=== PATIENT | male | born 1975 | race Caucasian/White ===

== ENCOUNTER → 2017-12-15 09:20 | Outpatient (CLI) | payer MEDICAID, SELFPAY ==
--- NOTE | 2017-12-15 09:29 | US_ITS ---
STUDY: ABDOMINAL ULTRASOUND - RIGHT UPPER QUADRANT REASON FOR VISIT: Male, 42 years old. Elevated LFTs, hepatitis C, fatty liver TECHNIQUE: Ultrasound evaluation of the right upper quadrant was performed with real-time and static barreto-scale imaging. TECHNICAL QUALITY: Limited. Examination limited by bowel gas. COMPARISON: Previous liver ultrasound of 02/03/2015 FINDINGS: Liver: The liver measures 12.6 cm. There is increased echogenicity consistent with fatty infiltration. The bile ducts are within normal limits. There is hepatic color flow. The direction of portal flow is hepatopetal. There is no demonstrated mass lesion. Gallbladder: Normal distended gallbladder. The gallbladder wall measures 3.4 mm. There is a negative sonographic Zavala's sign. There is a trace of pericholecystic fluid. There are no gallstones. Common Bile Duct (C.B.D.): The common bile duct measures 1.8 mm. Pancreas: The pancreas is poorly visualized secondary to obscuration by bowel gas. Right Kidney: Normal size of the right kidney. The right kidney measures 9.5 x 4.5 x 5.0 cm. Normal renal cortex. The right cortex measures 1.7 cm. There is no demonstrated renal mass or cyst. There is no right hydronephrosis. US/Liver IMPRESSION: The liver demonstrates diffusely increased echogenicity suggestive of steatosis. The pancreas was poorly visualized due to obscuration by excessive bowel gas. There is a trace of pericholecystic fluid. There is mild gallbladder wall thickening, measuring up to 3.4 mm. There is no evidence of cholelithiasis. Electronically Signed: Phillip Delarosa MD at 17:13 EST , Service support ,
--- NOTE | 2017-12-15 09:29 | RAD_ITS ---
STUDY: X-RAY - ABDOMEN/PELVIS REASON FOR EXAM: Male, 42 years old. Abdominal pain TECHNIQUE: Two AP supine views of the abdomen and pelvis. COMPARISON: Prior study of 12/30/2016 FINDINGS: The lung bases are not in the field of view of the study. There is a moderate amount of colonic stool. There is no demonstrated free abdominal air. There are tiny radiopacities in the 2 to 3 mm range overlying the renal silhouettes which may represent nephrolithiasis. These are stable in the interval. There are bilateral pelvic phleboliths. There are degenerative changes of the lower lumbar spine. RAD/Abdomen Single View IMPRESSION: Tiny radiopacities in the 2 to 3 mm range overlying the renal silhouettes which may represent nephrolithiasis. These are stable in the interval. Moderate amount of colonic stool which may represent constipation. There is no evidence of ileus or obstruction. Electronically Signed: Phillip Delarosa MD at 16:52 EST , Service support ,
== END ==
PROVIDERS: Family Provider Family Medicine; PCP Family Medicine; Visit Provider Family Medicine
DX: N20.0 Calculus of kidney (principal); B19.20 Unspecified viral hepatitis C without hepatic coma; R79.89 Other specified abnormal findings of blood chemistry
CPT/HCPCS: 74018; 76705

== ENCOUNTER → 2018-01-27 08:54 | Outpatient (CLI) | payer MEDICAID, SELFPAY ==
[2018-01-27 09:43] VITALS: PULSE 63; PULSE 65; PULSE 78; PULSE 80; PULSE 81; PULSE 82; PULSE 85; PULSE 86; O2SAT 86; O2SAT 92; O2SAT 95; O2SAT 96; O2SAT 97; O2SAT 98
--- NOTE | 2018-01-27 09:52 | CPS ---
Patient began testing on room air. Spo2 dropped at 1 min to 86% RA, rested placed on 2lpm and testing continued. Patient had a rest each minute due to back pain. SPO2 maintained above 90% on 2lpm for remainder of testing. Prescription signed by LEEANNA Calix and sent to [facility] [place].
[2018-01-27 10:52] LABS: ALB/GLOB Ratio 0.9 RATIO (0.9-2.4); AST(SGOT) 131 U/L (15-37); Alanine Aminotransfer ALT/SGPT 96 U/L (16-61); Albumin, Serum 3.8 g/dL (3.2-5.0); Alkaline Phosphatase 145 U/L (45-117); Anion Gap 6 (5-15); BUN 25 mg/dL (7-18); BUN/Creat Ratio 17.2 RATIO (10-20); Chloride 111 mmol/L (98-107); Creatinine, Serum 1.45 mg/dL (0.70-1.30); EST Glomerular Filtration Rate 57 mL/min (>60); Est Glom Filt Rate - Afr Amer 69 mL/min (>60); Estimated Creatinine Clearance 72.38 ml/min; Globulin 4.2 g/dL (2.2-4.2); Glucose 94 mg/dL (74-106); Potassium 4.1 mmol/L (3.5-5.1); Sodium Level 144 mmol/L (136-145)
--- NOTE | 2018-01-27 13:54 | PCM.PSN.6M ---
PSN 6 Minute Walk Test - 6 Minute Walk Test 6 Minute Walk Test: 6 Minute Walk Test PSN:6-Minute Walk Test Start: 01/27/18 09:42 Freq: Status: Active Protocol: [id number].6MINW Document 01/27/18 09:43 [facility] (Rec: 01/27/18 10:00 [facility] [id number]) 6 Minute Walk Test Date Performed 01/27/18 Time Performed 09:00 Height 6 ft 1 in Weight: 170 lb Weight in Pounds 170.[address]: Edward Ahuja Assistive device used: None Pre-test Oxygen Delivery Method Room Air Pulse Ox (%) 96 Pulse Rate (60-100 beats/min) 63 Dyspnea Emanuel Scale (0-10) 1 1st minute Oxygen Delivery Method Room Air Pulse Ox (%) 86 Pulse Rate (60-100 beats/min) 85 Dyspnea Emanuel Scale (0-10) 3 Number of Rests Taken 1 Reported Symptoms Cyanotic Increased Work of Breathing 2nd minute Oxygen Flow Rate (L/min) (L/min) 2 Oxygen Delivery Method Nasal Cannula Pulse Ox (%) 92 Pulse Rate (60-100 beats/min) 86 Dyspnea Emanuel Scale (0-10) 2 Number of Rests Taken 1 3rd minute Oxygen Flow Rate (L/min) (L/min) 2 Oxygen Delivery Method Nasal Cannula Pulse Ox (%) 95 Pulse Rate (60-100 beats/min) 82 Dyspnea Emanuel Scale (0-10) 2 Number of Rests Taken 1 4th minute Oxygen Flow Rate (L/min) (L/min) 2 Oxygen Delivery Method Nasal Cannula Pulse Ox (%) 97 Pulse Rate (60-100 beats/min) 81 Dyspnea Emanuel Scale (0-10) 2 Number of Rests Taken 1 5th minute Oxygen Flow Rate (L/min) (L/min) 2 Oxygen Delivery Method Nasal Cannula Pulse Ox (%) 95 Pulse Rate (60-100 beats/min) 78 Dyspnea Emanuel Scale (0-10) 2 Number of Rests Taken 1 6th minute Oxygen Flow Rate (L/min) (L/min) 2 Oxygen Delivery Method Nasal Cannula Pulse Ox (%) 98 Pulse Rate (60-100 beats/min) 80 Dyspnea Emanuel Scale (0-10) 2 Post-test Oxygen Flow Rate (L/min) (L/min) 2 Oxygen Delivery Method Nasal Cannula Pulse Ox (%) 98 Pulse Rate (60-100 beats/min) 65 Dyspnea Emanuel Scale (0-10) 0 Full Laps Walked 10 Partial Lap, Number of Tiles Walked 14 Total Distance Walked (ft) 604 01/27/18 09:52 Cardiopulmonary Services by Jeanine Farmer Patient began testing on room air. Spo2 dropped at 1 min to 86% RA, rested placed on 2lpm and testing continued. Patient had a rest each minute due to back pain. SPO2 maintained above 90% on 2lpm for remainder of testing. Prescription signed by LEEANNA Calix and sent to [facility] [place]. Initialized on 01/27/18 09:52 - END OF NOTE - Interpretation Interpretation: The patient ambulated 604 feet over the course of 6 minutes beginning on room air without assistive devices or breaks. Pretesting oxygen saturation was noted to be 96% on room air. With ambulation, the raymond oxygen saturation was 86% at minute 2 of testing. 2 L/min of supplemental oxygen was applied and the patient was able to complete the remainder of the test, while maintaining oxygen saturations at or above 88%. There was evidence of both impaired walk distance and significant exertional oxygen desaturation. - Recommendations Recommendations: 2 L/min of supplemental oxygen should be utilized with exertion.
== END ==
PROVIDERS: Family Provider Family Medicine; PCP Family Medicine; Visit Provider Family Medicine
DX: J18.9 Pneumonia, unspecified organism (principal); G93.40 Encephalopathy, unspecified; B19.20 Unspecified viral hepatitis C without hepatic coma; R79.89 Other specified abnormal findings of blood chemistry
CPT/HCPCS: 36415; 80053; 82140; 94618

== ENCOUNTER → 2018-01-31 10:58 | Outpatient (CLI) | payer MEDICAID, SELFPAY ==
--- NOTE | 2018-01-31 15:23 | PFTCOMP ---
COMPLETE PULMONARY FUNCTION TEST INTERPRETATION Brief HPI: Patient is a 43 year old male, currently under the care of myself, who presents to [facility] for complete pulmonary function tests secondary to diagnosis of ZAIRE. Respiratory therapist reports good effort and reproducible results. Interpretation: Forced expiration spirometry shows no large airways obstructive ventilatory defect with an FEV1 of 88% predicted. There is no significant bronchodilator response by ATS criteria. Spirograms are of good quality and plateau normally. The respiratory flow volume loop shows a normal pattern. Lung volumes by body plethysmography show a normal total lung capacity at 6.85 L, 90% predicted. All other lung volumes are within normal limits. Diffusion capacity by carbon monoxide is normal at 73% predicted. The airway resistance is normal. Compared to previous pulmonary function tests from 01/04/2017, there has been a significant improvement in DLCO. Impression: These pulmonary function tests are grossly within normal limits and show significant improvement in DLCO compared to previous.
== END ==
PROVIDERS: Family Provider Family Medicine; PCP Family Medicine; Visit Provider Internal Medicine Critical Care Medicine
DX: G47.33 Obstructive sleep apnea (adult) (pediatric) (principal)
CPT/HCPCS: 94060; 94726; 94729

== ENCOUNTER → 2018-02-27 15:10 | Outpatient (CLI) | payer MEDICAID, SELFPAY ==
[2018-02-27 17:05] LABS: Absolute Lymphocyte Count 3.45 X10^3/ul (0.83-4.51); Basophil# 0.07 X10^3/uL; Basophil% 0.5 % (0-1); Eosinophil# 0.77 X10^3/uL; Eosinophils% 5.3 % (0-5); Hematocrit 39.6 % (40-54); Hemoglobin 12.9 g/dl (13.0-16.5); Lymphocyte # 3.45 X10^3/ul (4.0); Lymphocyte % 23.9 % (19-41); Mean Corp Hgb Conc 32.6 g/gl (32-36); Mean Corpuscular Hgb 30.2 pg (27.0-32.0); Mean Corpuscular Volume 92.7 fL (80-94); Mean Platelet Vol. 10.8 fl (6.2-12.0); Monocyte# 1.06 X10^3/uL; Monocyte% 7.3 % (0-10); Neutrophil # 9.02 X10^3/uL (2.7-7.7); Neutrophil % 62.5 % (47-70); POSITIVE COUNT NO; POSITIVE DIFFERENTIAL NO; POSITIVE MORPHOLOGY NO; Platelet Count 370 K/mm3 (150-450); RBC Distribution Width CV 13.6 % (11.6-14.6); RBC Distribution Width SD 45.6 fl (35.1-43.9); Red Blood Count 4.27 M/mm3 (4.6-6.2); White Blood Count 14.4 K/mm3 (4.4-11.0)
[2018-02-27 17:16] LABS: AST(SGOT) 115 U/L (15-37); Alanine Aminotransfer ALT/SGPT 89 U/L (16-61); Albumin, Serum 3.9 g/dL (3.2-5.0); Alkaline Phosphatase 175 U/L (45-117); Anion Gap 6 (5-15); BUN 21 mg/dL (7-18); BUN/Creat Ratio 15.7 RATIO (10-20); Bilirubin, Direct 0.17 mg/dL (0.00-0.30); Calcium,Total 9.2 mg/dL (8.5-10.1); Chloride 105 mmol/L (98-107); Creatinine, Serum 1.34 mg/dL (0.70-1.30); EST Glomerular Filtration Rate 62 mL/min (>60); Est Glom Filt Rate - Afr Amer 75 mL/min (>60); Globulin 4.5 g/dL (2.2-4.2); Glucose 84 mg/dL (74-106); Potassium 4.6 mmol/L (3.5-5.1); Protein, Total 8.4 g/dL (6.4-8.2); Sodium Level 138 mmol/L (136-145)
[2018-02-27 17:29] LABS: Hemoglobin A1c 5.1 % (4.2-6.3)
== END ==
PROVIDERS: Family Provider Family Medicine; PCP Family Medicine; Visit Provider Family Medicine
DX: G93.40 Encephalopathy, unspecified (principal); F10.11 Alcohol abuse, in remission; R26.89 Other abnormalities of gait and mobility; R73.01 Impaired fasting glucose
CPT/HCPCS: 36415; 80048; 80076; 82140; 83036; 85025

== ENCOUNTER → 2018-03-29 11:20 | Outpatient (CLI) | payer MEDICAID, SELFPAY ==
[2018-03-29 12:43] LABS: ALB/GLOB Ratio 0.9 RATIO (0.9-2.4); AST(SGOT) 104 U/L (15-37); Alanine Aminotransfer ALT/SGPT 85 U/L (16-61); Alkaline Phosphatase 134 U/L (45-117); Anion Gap 12 (5-15); BUN 32 mg/dL (7-18); BUN/Creat Ratio 19.2 RATIO (10-20); Calcium,Total 9.3 mg/dL (8.5-10.1); Chloride 106 mmol/L (98-107); Creatinine, Serum 1.67 mg/dL (0.70-1.30); EST Glomerular Filtration Rate 48 mL/min (>60); Est Glom Filt Rate - Afr Amer 58 mL/min (>60); Globulin 4.7 g/dL (2.2-4.2); Glucose 99 mg/dL (74-106); Potassium 3.9 mmol/L (3.5-5.1); Prealbumin 26.1 mg/dL (20.0-40.0); Protein, Total 8.7 g/dL (6.4-8.2); Sodium Level 140 mmol/L (136-145)
== END ==
PROVIDERS: Family Provider Family Medicine; PCP Family Medicine; Visit Provider Family Medicine
DX: K72.90 Hepatic failure, unspecified without coma (principal); R25.1 Tremor, unspecified; R27.8 Other lack of coordination; R29.6 Repeated falls
CPT/HCPCS: 36415; 80053; 82140; 84134

== ENCOUNTER 2018-04-05 09:20 | Inpatient (IN) | payer MEDICAID, SELFPAY ==
[2018-04-05] VITALS (7 sets, daily range): BP systolic 92–131; BP diastolic 44–96; PULSE 60–72; RESP 16–18; TEMP 35.9–36.7; O2SAT 95–100; BMI 20.2; BMI 20.3
[2018-04-05 10:37] LABS: Absolute Lymphocyte Count 2.46 X10^3/ul (0.83-4.51); Absolute Neutrophil Count 4.5 X10^3/uL (2.0-7.7); Basophil# 0.03 X10^3/uL; Basophil% 0.4 % (0-1); Eosinophil# 0.46 X10^3/uL; Eosinophils% 5.6 % (0-5); Hematocrit 34.1 % (40-54); Hemoglobin 11.3 g/dl (13.0-16.5); Lymphocyte # 2.46 X10^3/ul (4.0); Lymphocyte % 29.8 % (19-41); Mean Corp Hgb Conc 33.1 g/gl (32-36); Mean Corpuscular Hgb 28.8 pg (27.0-32.0); Mean Platelet Vol. 9.2 fl (6.2-12.0); Monocyte# 0.77 X10^3/uL; Monocyte% 9.3 % (0-10); Neutrophil # 4.53 X10^3/uL (2.7-7.7); Neutrophil % 54.8 % (47-70); Platelet Count 301 K/mm3 (150-450); RBC Distribution Width CV 12.3 % (11.6-14.6); RBC Distribution Width SD 39.1 fl (35.1-43.9); Red Blood Count 3.92 M/mm3 (4.6-6.2); White Blood Count 8.3 K/mm3 (4.4-11.0)
[2018-04-05 10:38] LABS: POSITIVE COUNT NO; POSITIVE DIFFERENTIAL NO; POSITIVE MORPHOLOGY NO
[2018-04-05 10:52] LABS: ALB/GLOB Ratio 0.9 RATIO (0.9-2.4); AST(SGOT) 86 U/L (15-37); Alanine Aminotransfer ALT/SGPT 70 U/L (16-61); Albumin, Serum 3.7 g/dL (3.2-5.0); Alkaline Phosphatase 116 U/L (45-117); Anion Gap 12 (5-15); BUN 40 mg/dL (7-18); BUN/Creat Ratio 14.7 RATIO (10-20); Calcium,Total 9.3 mg/dL (8.5-10.1); Chloride 104 mmol/L (98-107); Creatinine, Serum 2.72 mg/dL (0.70-1.30); EST Glomerular Filtration Rate 27 mL/min (>60); Est Glom Filt Rate - Afr Amer 33 mL/min (>60); Estimated Creatinine Clearance 34.96 ml/min; Globulin 4.1 g/dL (2.2-4.2); Glucose 105 mg/dL (74-106); Lipase 233 U/L (73-393); Potassium 3.4 mmol/L (3.5-5.1); Protein, Total 7.8 g/dL (6.4-8.2); Sodium Level 141 mmol/L (136-145)
[2018-04-05 10:58] LABS: Alcohol, Blood (Medical)-Serum < 3.0 mg/dL
[2018-04-05 11:13] LABS: Bacteria 0 SEEN /hpf (None Seen); Red Blood Cells-Urine 0 SEEN /hpf (0-5)
[2018-04-05 11:15] LABS: Color, Urine Yellow (Yellow); Glucose, Dipstick Normal (Normal); Ketone-Dipstick Negative (Negative); Leukocyte Esterase-Dipstick 100 /ul (Negative); Nitrite-Dipstick Negative (Negative); Occult Blood-Urine Negative /ul (Negative); Protein-Dipstick 30 mg/dl (Negative); Urine Clarity Sl. Cloudy (Clear); Urine Urobilinogen 1 mg/dl (Normal)
[2018-04-05 11:16] LABS: Urine Bilirubin Dipstick 1 mg/dL (Negative)
[2018-04-05 11:22] LABS: White Blood Cells 5-10 SEEN /hpf (0-5)
[2018-04-05 11:24] LABS: Fine Granular Cast- Urine 0-5 SEEN /lpf (0-5); Hyaline Cast 5-10 SEEN /lpf (0-5); Mucous, Urine RARE /hpf (<or=2+); Squamous Epithelial Cells - UA 0-5 SEEN /hpf (0-5)
[2018-04-05 11:28] LABS: Amphetamine Urine VISTA NEGATIVE (<1000 ng/mL); Barbiturate Urine VISTA POSITIVE (< 200 ng/mL); Benzodiazepine Urine VISTA NEGATIVE (< 200 ng/mL); Cocaine Urine VISTA NEGATIVE (< 300 ng/mL); Ecstacy Urine VISTA POSITIVE (< 500 ng/mL); Methadone Urine VISTA NEGATIVE (< 300 ng/mL); PCP Urine VISTA NEGATIVE (< 25 ng/mL); THC Urine VISTA POSITIVE (< 50 ng/mL); Vista UDS pH Range 6
[2018-04-05] MEDS: 0.9% Normal Saline 1,000 ML 999 ML IV (11:30)
--- NOTE | 2018-04-05 11:40 | ED.RN ---
SPOKE TO [facility] WITH CRISIS; THEY WILL BE IN TO EVAL PT SOMETIME AFTER ONE
--- NOTE | 2018-04-05 11:45 | CT_ITS ---
STUDY: CT BRAIN WITHOUT CONTRAST REASON FOR EXAM: Male, 43 years old. Altered mental status and hallucinations. Hypotensive. Seizure disorder. RADIATION DOSAGE (If Supplied By Facility): CTDIvol = ( 44.99 ) mGy, DLP = ( 829.85 ) mGycm TECHNIQUE: Transaxial CT imaging of the brain was performed without administration of intravenous contrast material. Individualized dose optimization techniques were used for this CT. COMPARISON: Comparison is made with prior study dated May 19, 2016. FINDINGS: Normal soft tissue structures. Normal calvarium. Normal size ventricles and extra-axial spaces for the patient's age. Normal white matter tracts of the cerebral hemispheres. Normal basal ganglia and thalami. Normal brainstem. Normal cerebellum. There is no intracranial hemorrhage. There are no findings of an acute ischemic infarction. Partial opacification of the maxillary sinuses worse on the left side. CT/Brain/Head without Contrast IMPRESSION: No acute abnormality is seen. Electronically Signed: Malik Ignacio MD at 14:25 EDT Tel [phone], Service support ,
--- NOTE | 2018-04-05 12:00 | RAD_ITS ---
STUDY: X-RAY CHEST REASON FOR EXAM: Male, 43 years old. Hallucinations. TECHNIQUE: PA and lateral views of the chest. COMPARISON: Comparison is made with prior study dated February 27, 2015. FINDINGS: The lungs are clear and expanded. There is no demonstrated pleural abnormality. Normal size heart. Normal mediastinum and jerad. Normal visualized pulmonary arteries. Normal visualized aortic arch and descending thoracic aorta. Normal visualized thoracic spine. Normal visualized ribs, clavicles, and shoulders. There is no demonstrated abnormality of the visualized soft tissue structures of the upper abdomen. RAD/Chest PA and Lateral IMPRESSION: Normal x-ray examination of the chest. Electronically Signed: Malik Ignacio MD at 14:19 EDT Tel [phone], Service support ,
--- NOTE | 2018-04-05 16:12 | ED.VISSUMM ---
- ER Visit Summary Date of Service: 04/05/18 Chief Complaint: Altered mental status History of Present Illness: The patient is a 43 M who presents with hallucinations at night and apparent manic behavior per his . He sees the counseling center as well as [facility]. He has been without alcohol for 2 months. The patient stopped Campral last week. States that he has been seeing things at night believing that there are people around him that are not there. Has a history of hepatitis C as well as alcoholism as well as bipolar/schizoaffective disorder. He has lost about 15 pounds since he stopped drinking. Physical Examination: Afebrile vital signs are stable Gen: Well-nourished well-developed Head: Normocephalic atraumatic Eyes: Perrl EOMI ENT: TMs clear no rhinorrhea moist mucous membranes Neck: Supple no lymphadenopathy no JVD nontender CVS: Regular rate rhythm no murmurs normal S1-S2 Respiratory: No distress clear to auscultation bilaterally chest nontender Abdomen: Soft nontender nondistended normal bowel sounds no masses Back: Nontender Extremity: Nontender no edema Skin: Normal color no rash Neuro: alert orientated ?3 CN II-XII intact normal strength sensation patient has extrapyramidal side effects Psych: Patient appears manic. Test Results: Creatinine 2.72 with a BUN of 40. His creatinine is substantially changed from 6 days ago. His tox screen is positive for methamphetamines barbiturates and THC. Ammonia level 25. CT brain negative chest x-ray negative Emergency Department Course and Treatment: She received IV fluids. I cannot clear him medically to go to psych and so he be admitted medically. Impression: 1. Acute kidney injury 2. Hallucinations 3. Encephalopathy 4. Acute luis This note was generated with [employer] dictation software. It may contain incorrect words, spelling, and punctuation that were not noted in review of the chart prior to signing ED Disposition - Plan for ED Patient: Chief Complaint: Mental Health
--- NOTE | 2018-04-05 20:08 | HP.PCM_ITS ---
Problem List (1) EDITH (acute kidney injury) Status: Acute (2) Bipolar disorder Status: Chronic Qualifiers: Active/Remission status: currently active Current bipolar episode type: manic Current episode severity: severe Psychotic features: with psychotic features Qualified Code(s): F31.2 - Bipolar disorder, current episode manic severe with psychotic features (3) Chronic alcoholism Status: Chronic Qualifiers: Substance use status: in remission History of Present Illness Date of Admission: 04/05/18 Chief Complaint: Manic episode. The patient is a 43 year old M []Patient gabriela 43 yo WM with history of alcoholism and substance abuse, presents with symptoms of manic episodes for about one week. He has not been sleeping, and has symptoms of visual hallucinations that he sees people that not present at the time. He has been following outpatient counseling. He was found to have creatinine of 2.72 on BMP. His baseline has been ranging from 1.3 to 1.7 in past 2 years. He had quit drinking 2 month ago, and since then, he had lost about 15 lbs. He still smokes marijuana, but denied of any other illicit drug use at this time. He has diagnosis of bipolar, but also he was told that he has schizoaffective disorder. He had occasional auditory hallucination in the past, but did not have visual hallucination in the past. CT of head was negative. He has history of Hep C, but liver enzymes were just marginally elevated, and ammonia level was 25. Past Medical History Past Medical History (Chronic Problems): Chronic Problems (Last Reviewed 03/09/18 @ 09:11 by Terri Petty) Bipolar disorder (Chronic) Tobacco abuse (Chronic) Hearing loss (Chronic) Weakness (Chronic) Abnormal chest xray (Chronic) Hypertriglyceridemia (Chronic) Hepatitis (Chronic) Bilateral knee pain (Chronic) Osteoarthritis (Chronic) Palpitations (Chronic) Dizziness (Chronic) Unsteady gait (Chronic) Tremor (Chronic) Stage 2 moderate COPD by GOLD classification (Chronic) Kidney stone (Chronic) Chronic alcoholism (Chronic) Medical History: Medical History (Last Reviewed 03/09/18 @ 09:11 by eTrri Ptety) Bipolar disorder (Chronic) F31.9 Tobacco abuse (Chronic) Z72.0 Hearing loss (Chronic) H91.90 Weakness (Chronic) R53.1 Abnormal chest xray (Chronic) R93.8 Abnormal liver function test (Acute) R94.5 Hypertriglyceridemia (Chronic) E78.1 Hepatitis (Chronic) K75.9 Bilateral knee pain (Chronic) M25.561, M25.562 Osteoarthritis (Chronic) M19.90 Palpitations (Chronic) R00.2 Dizziness (Chronic) R42 Unsteady gait (Chronic) R26.81 Tremor (Chronic) R25.1 Stage 2 moderate COPD by GOLD classification (Chronic) J44.9 Left upper lobe pneumonia (Acute) J18.9 Kidney stone (Chronic) Chronic alcoholism (Chronic) F10.20 Alcohol withdrawal with delirium (Acute) F10.231 GERD (gastroesophageal reflux disease) (Acute) K21.9 Hallucination, visual (Acute) R44.1 Allergies amantadine [From Symmetrel] Allergy (Verified 04/15/17 11:40) Other GOES CRAZY ranitidine [From Zantac] Allergy (Verified 04/05/18 09:22) Other Home Medications: Ambulatory Orders Medication Instructions Recorded Cyclobenzaprine [Flexeril] 10 mg PO TID PRN PRN 04/05/18 Diclofenac [Voltaren] 50 mg PO BID 04/05/18 Fluoxetine [Prozac] 80 mg PO DAILY 04/05/18 Gemfibrozil [Lopid] 600 mg PO BID 04/05/18 Hydroxyzine Pamoate [Vistaril] 50 mg PO BID 04/05/18 Lamotrigine 200 mg PO DAILY 04/05/18 Lamotrigine [Lamictal Xr] 50 mg PO QHS 04/05/18 Loratadine 10 mg PO DAILY 04/05/18 Naltrexone HCl 50 mg PO DAILY 04/05/18 Omeprazole 20 mg PO DAILY 04/05/18 Propranolol HCl 40 mg PO BID 04/05/18 Ziprasidone HCl [Geodon] 40 mg PO QHS 04/05/18 traZODone [Desyrel] 200 mg PO DAILY 04/05/18 Surgical History: Surgical History (Last Reviewed 03/09/18 @ 09:11 by Terri Petty) History of neck surgery (Resolved) Z98.890 History of extraction of renal calculus (Resolved) Z98.890, Z87.448 History of rhinoplasty (Resolved) Z98.890 Surgical History: - - unknown Psychiatric History: - - unknown Smoking Status: Former smoker Tobacco Use: Cigarettes - *Family History Maternal Family History: Family History (Last Reviewed 03/09/18 @ 09:11 by Terri Petty) Mother Diabetes Depression History Items: - - Mother has history of bipolar disorder and she is on antipsychotic medications. Review of Systems Comment: ROS: In general: Patient has been in good health, denied of any constitutional symptoms, such as weight loss, or gain, fever, chills, or night sweats. Patient denied of any profound fatigue. HEENT: Unremarkable. Patient denied of any dizziness, chronic headache, blurred vision, double vision, dry mouth, or nasal congestion. CV/respiratory: There is no exertional shortness of breath, chest pain, palpitation, wheezing, cough, claudication, cold feet, or peripheral edema. GI: Patient denied any abdominal pain, nausea, vomiting, diarrhea, constipation, melena, or hematochezia. : Patient denied any significant urinary symptoms. Neurology: Unremarkable. There is no history of seizure as an adult. Psychological: See HPI. Endocrine: Unremarkable. Musculoskeletal: Unremarkable. VTE Information - Inpt Only VTE Present on Admission: No VTE Mechan Device Prophylaxis: Knee High EVELINA Hose VTE Pharm Prophylaxis ordered?: Yes Patient Problems: Active and Suspected Problems (Last Reviewed 03/09/18 @ 09:11 by Terri Petty ) EDITH (acute kidney injury) (Acute) Objective: In general, patient is a cachectic appearing male. He has pressured speech, but coherent. HEENT: Head is atraumatic, and normocephalic. Pupils are equal, round, and reactive to light and accommodations. Neck is supple. There is no lymphadenopathy, or thyromegaly. Oral mucosa is pink, and moist. There are no lesions. Heart: Auscultation is normal with regular rhythm and rate. There is no extra heart sounds, or murmurs. S1 and S2 are present. Point of maximal impulse is not displaced. Lungs: Lungs are clear to auscultation bilaterally. There is no wheezing, or crackles. Abdomen: Abdominal wall is non-tender, and non-distended. There is no palpable mass or organomegaly. Normoactive bowel sounds are present. Extremities: There is no cyanosis or clubbing. Peripheral pulses are palpable. There is no edema. Skin: There are no any skin discoloration or lesions. Neurological: CN II - XII are intact. Sensory and motor functions are grossly normal with no obvious deficit. Cerebellar functions are within normal range. Gait was not tested. He is affect is pressured, and has odd affect response. Oriented x 3. - Physical Exam Vital Signs Temp Pulse Resp BP Pulse Ox 98.1 F 64 18 103/44 L 95 04/05/18 19:50 04/05/18 19:50 04/05/18 19:50 04/05/18 19:50 04/05/18 19:50 Oxygen Flow Rate (L/min) 2 Oxygen Delivery Method Nasal Cannula Assessment/Plan All Active Problems (Last Reviewed 03/09/18 @ 09:11 by Terri Petty) EDITH (acute kidney injury) (Acute) History of neck surgery (Resolved) History of extraction of renal calculus (Resolved) History of rhinoplasty (Resolved) Abnormal liver function test (Acute) Left upper lobe pneumonia (Acute) Alcohol withdrawal with delirium (Acute) GERD (gastroesophageal reflux disease) (Acute) Hallucination, visual (Acute) Patient gabriela 43 yo WM with history of alcoholism and substance abuse, presents with symptoms of manic episodes for about one week. He has not been sleeping, and has symptoms of visual hallucinations that he sees people that not present at the time. He has been following outpatient counseling. He was found to have creatinine of 2.72 on BMP. His baseline has been ranging from 1.3 to 1.7 in past 2 years. He had quit drinking 2 month ago, and since then, he had lost about 15 lbs. He still smokes marijuana, but denied of any other illicit drug use at this time. He has diagnosis of bipolar, but also he was told that he has schizoaffective disorder. He had occasional auditory hallucination in the past, but did not have visual hallucination in the past. CT of head was negative. He has history of Hep C, but liver enzymes were just marginally elevated, and ammonia level was 25. #1 EDITH with CKD III. Creatine is 2.72, baseline is 1.3 to 1.7. Etiology is not clear, possibly due to dehydration / poor oral intake. IVF 0.45 NS at 150 ml/hr. Discontinue diclofenac for now. Monitor BMP. #2 Mood disorder. Likely with bipolar with manic episodes, along with psychosis feature. He will benefit from inpatient psychiatry treatment when EDITH improves. Continue current medications. #3 History of alcohol and polysubstance abuse. Continue medications. #4 HIstory of hepatitis C. Liver enzymes are just marginally elevated. No signs of acute hepatitis otherwise. VTE prophylaxis: Low risk. GI prophylaxis: PPI po. He is full code. Disposition: to be determined. Code Visit Inpatient E&M: [id number] Init Hosp L3
[2018-04-05] MEDS: Gemfibrozil 600 MG Tablet PO (21:40)
[2018-04-05] MEDS: lamoTRIgine 25 MG Tablet 50 MG PO (21:41)
[2018-04-05] MEDS: lamoTRIgine 25 MG Tablet PO (21:41)
[2018-04-05] MEDS: 0.45% Normal Saline 1,000 ML 150 ML IV (21:43)
[2018-04-05] MEDS: traZODone 100 MG Tablet 200 MG PO (21:48)
[2018-04-06] VITALS: PULSE 78
[2018-04-06 01:52] VITALS: BP 98/63; PULSE 65; RESP 16; TEMP 37.2; O2SAT 97
--- NOTE | 2018-04-06 02:31 | NURSING ---
pt taking off tele leads repeatedly all through night will not leave on. nursing staff continually replace but pt unable to follow instructions to leave on
[2018-04-06] MEDS: hydrOXYzine PAM 25 MG Capsule 50 MG PO (03:48)
[2018-04-06] MEDS: 0.45% Normal Saline 1,000 ML 150 ML IV ×3 (03:48→17:07)
[2018-04-06 06:42] LABS: Hematocrit 30.6 % (40-54); Hemoglobin 10.3 g/dl (13.0-16.5); Mean Corp Hgb Conc 33.7 g/gl (32-36); Mean Corpuscular Hgb 29.4 pg (27.0-32.0); Mean Corpuscular Volume 87.4 fL (80-94); Mean Platelet Vol. 10.1 fl (6.2-12.0); Platelet Count 339 K/mm3 (150-450); RBC Distribution Width CV 11.5 % (11.6-14.6); RBC Distribution Width SD 35.9 fl (35.1-43.9); Scan Indicated on CBC? Y/N NO
[2018-04-06 06:54] LABS: Anion Gap 9 (5-15); BUN 23 mg/dL (7-18); BUN/Creat Ratio 14.7 RATIO (10-20); Calcium,Total 8.6 mg/dL (8.5-10.1); Chloride 111 mmol/L (98-107); Creatinine, Serum 1.56 mg/dL (0.70-1.30); EST Glomerular Filtration Rate 52 mL/min (>60); Est Glom Filt Rate - Afr Amer 63 mL/min (>60); Estimated Creatinine Clearance 60.55 ml/min; Glucose 80 mg/dL (74-106); Potassium 3.8 mmol/L (3.5-5.1); Sodium Level 143 mmol/L (136-145)
[2018-04-06 07:50] VITALS: BP 108/60; PULSE 68; RESP 18; TEMP 36.2; O2SAT 96
[2018-04-06] MEDS: Gemfibrozil 600 MG Tablet PO ×2 (08:23→21:57)
[2018-04-06] MEDS: lamoTRIgine 25 MG Tablet PO ×2 (08:23→21:56)
[2018-04-06] MEDS: NALTREXONE HCL 50 MG TABLET PO (08:23)
[2018-04-06] MEDS: Propranolol 40 MG Tablet PO ×2 (08:23→21:56)
[2018-04-06] MEDS: FLUoxetine 20 MG Capsule 80 MG PO (08:23)
[2018-04-06] MEDS: Pantoprazole Sodium 20 MG Tablet PO (08:23)
[2018-04-06] MEDS: Loratadine 10 MG Tablet PO (08:28)
[2018-04-06] MEDS: lamoTRIgine 100 MG Tablet 200 MG PO (08:28)
--- NOTE | 2018-04-06 10:28 | CASEMGMT ---
Social Work Met with pt in room and introduced self and role of SW. Pt alert and answering questions but reliability of answers is questionable. Pt does confirm that he sees a psychiatrist at the counseling center but has not been there for a long time. Pt also states he goes to [facility] but has not been involved in the last week. Pt lives at home with his spouse and children in a two story home and is on disability and able to help him as needed. Pt uses [facility]. Phone call to [facility] inquiring if referral has been made and at this time Crisis has not received a referral. SW notified physician and will continue to follow and provide support and assist as needed. SKYLER Rodriguez
--- NOTE | 2018-04-06 11:34 | PCM.PROGNOTE ---
Patient Problems: Active and Suspected Problems (Last Reviewed 03/09/18 @ 09:11 by Terri Petty) EDITH (acute kidney injury) (Acute) Subjective: Patient is a 43-year-old male with a past medical history of bipolar disorder, schizoaffective disorder, tobacco dependence, hypertriglyceridemia, history of hepatitis C, COPD, nephrolithiasis, substance abuse and alcoholism who presented to the emergency room at [facility] on 04/05/2018 complaining of hallucinations and manic behavior for 1 week per his . He follows with [facility] and the counseling center. He quit drinking approximately 2 months ago. He was on Campral which he quit 2 weeks prior to presenting to the ER. Vital signs at presentation to the emergency room were temperature 96.7, pulse rate 68, blood pressure 92/59, respiratory rate 18 and he was 100% saturated on room air. White blood cell count was 8.3 with an unremarkable differential. Hemoglobin was 11.3 and platelets were within normal limits. Potassium is mildly decreased at 3.4. BUN was 40 and the creatinine was 2.72, up from 1.67 on 03/29/2018. AST and ALT are mildly elevated at [address] showed no acute abnormality. Chest x-ray was normal. Urine tox screen is positive for barbiturates, methamphetamine and cannabis. Ethyl alcohol was less than 3.0. He takes Naltrexone 50 mg daily. BUN is 23 today and the creatinine is 1.56 following hydration. He is afebrile and vital signs are stable. His states he has not slept in 3 nights. He has not been eating or drinking. she has never seen him manic. He denies any use of METH and the Wellbutrin is likely causing a false positive. Continues to have hallucinations today.....but he says they are less than yesterday. they are visual hallucinations. He has not been drinking. He doses smoke marijuana. - Physical Exam General: Alert, Cooperative, - - able to answer my questions appropriately He is restless and having tremors but is staying in the bed and has not been aggressive. HEENT: Atraumatic, PERRLA Oral: No Gingival or Mucosal Lesions/ Ulcerations, Dry Mucosa Neck: Supple, Trachea Midline Lungs: Clear to auscultation, No rhonchi, No wheeze, No rales Cardiovascular: Regular rate, Regular Rhythm, Normal S1, Normal S2, No murmurs, No Gallop Abdomen: Bowel Sounds Present, Soft, Non Tender, Non-Distended Extremities: No clubbing, No cyanosis, No edema Skin: No rashes Neurological: Cranial nerves II-XII grossly intact, Neuro grossly intact, - - speech is somewhat slurred but, his mouth is so dry that his tongue is sticking to the roof of his mouth. Psych/Mental Status: Appropriate Vital Signs Temp Pulse Resp BP Pulse Ox 97.1 F L 68 18 108/60 96 04/06/18 07:50 04/06/18 07:50 04/06/18 07:50 04/06/18 07:50 04/06/18 07:50 Oxygen Flow Rate (L/min) 2 Oxygen Delivery Method Room Air Weight: 153 lb 0.013 oz Intake and Output for Last 24 Hours 04/04/18 04/05/18 04/06/18 23:59 23:59 23:59 Intake Total 261 / 261 929 / 929 Balance 261 / 261 929 / 929 Laboratory Tests Past 24 Hrs 04/06/18 04/06/18 06:02 06:02 WBC 9.0 RBC 3.50 L Hgb 10.3 L Hct 30.6 L MCV 87.4 MCH 29.4 MCHC 33.7 RDW 11.5 L RDW Differential 35.9 Plt Count 339 MPV 10.1 Sodium 143 Potassium 3.8 Chloride 111 H Carbon Dioxide 23.0 Anion Gap 9 BUN 23 H Creatinine 1.56 H Estim Creat Clear Calc 60.55 Est GFR (MDRD) Af Amer 63 Est GFR (MDRD) Non-Af 52 L BUN/Creatinine Ratio 14.7 Glucose 80 Calcium 8.6 Medical Necessity - Tobacco Use Smoking Status: Former smoker Tobacco Use: Cigarettes Assessment/Plan All Active Problems (Last Reviewed 03/09/18 @ 09:11 by Terri Petty) EDITH (acute kidney injury) (Acute) History of neck surgery (Resolved) History of extraction of renal calculus (Resolved) History of rhinoplasty (Resolved) Abnormal liver function test (Acute) Left upper lobe pneumonia (Acute) Alcohol withdrawal with delirium (Acute) GERD (gastroesophageal reflux disease) (Acute) Hallucination, visual (Acute) Impressions 1. hx of BPD with acute luis - possibly precipitated by the recent drama last Jose C over his 11 YO dtr. He feels that she is not in a safe enviroment with the mother and the dtr went to the aunt and not to him and somehow [employer] was called and the police. He denies suicidal ideation. He is willing to go voluntarily to a psychiatric facility for stabilization. 2. hx of alcoholism - stopped 2 months ago 3. tobacco dependence 4. Acute kidney injury secondary to dehydration 5. Schizoaffective disorder 6. Hypertriglyceridemia 7. Hepatitis C with abnormal transaminases 8. COPD 9. Nephrolithiasis 10. History of substance abuse but making attempts to quit all addictive behaviors. He has been following up at [facility]...... campground was not working for him and he was recently started on naltrexone by 180 to suppress the craving for alcohol Continue IV fluids Recheck lab in the a.m. Consult counseling Center for crisis intervention Send a confirmatory test for methamphetamine Has never been treated for hepatitis C and knows that he has to be drug free for a year before he can be treated Code Visit Inpatient E&M: 88543 Subs Hosp L2
--- NOTE | 2018-04-06 12:57 | CASEMGMT ---
Social Work Per physician, pt may likely be ready for d/c tomorrow and crisis intervention for physiatric placement would be warranted. Referral placed to Dale at Crisis. Dale states he will need to evaluate the pt on the day of discharge and will therefore be in tomorrow morning 04/07/18 to evaluate pt for placement. SKYLER Rodriguez
[2018-04-06 13:40] VITALS: BP 129/86; PULSE 72; RESP 18; TEMP 36.8; O2SAT 100
--- NOTE | 2018-04-06 19:40 | NURSING ---
Pt's father in room currently. Went in during shift change to find that pt had pulled IV out. Appeared more agitated with baseline tremors. Will restart IV once HS meds have been given.
[2018-04-06 21:47] VITALS: BP 100/76; PULSE 64; RESP 18; TEMP 36.3; O2SAT 95
[2018-04-06] MEDS: traZODone 100 MG Tablet 200 MG PO (21:55)
[2018-04-06] MEDS: lamoTRIgine 25 MG Tablet 50 MG PO (21:56)
--- NOTE | 2018-04-07 01:35 | NURSING ---
IV pump beeping. This RN entered room, IV pole in bed with patient. Turned light on and noticed that IV tubing had been snapped at the hub and blood squirting out. Moderate amount of blood all over patient and bed. Nursing staff took patient to the rest room and cleaned up bed and patient.
[2018-04-07] MEDS: Haloperidol Lactate 5 MG/ML Vial 2 MG IV (02:16)
[2018-04-07 02:21] VITALS: BP 102/64; PULSE 68; RESP 18; TEMP 36.6; O2SAT 97
--- NOTE | 2018-04-07 03:40 | NURSING ---
Pt continuing to exemplify manic sx, Dr. Garcia made aware. Ordered Haldol IV Q4H PRN. Per protocol also placed pt on Tele monitoring. Pt continued to remove tele stickers, unable to sustain continuos rhythm on pt. Also pt is showing an increase in hallucinations and tremors with sporadic jolts and REM with his eyes rolling back. Increased post haldol. Will continue to monitor.
[2018-04-07] MEDS: 0.45% Normal Saline 1,000 ML 150 ML IV ×3 (03:53→17:35)
[2018-04-07 06:28] LABS: Hematocrit 32.1 % (40-54); Hemoglobin 10.7 g/dl (13.0-16.5); Mean Corp Hgb Conc 33.3 g/gl (32-36); Mean Corpuscular Hgb 28.8 pg (27.0-32.0); Mean Corpuscular Volume 86.5 fL (80-94); Mean Platelet Vol. 9.6 fl (6.2-12.0); Platelet Count 344 K/mm3 (150-450); RBC Distribution Width CV 12.1 % (11.6-14.6); RBC Distribution Width SD 38.9 fl (35.1-43.9); Red Blood Count 3.71 M/mm3 (4.6-6.2); White Blood Count 12.1 K/mm3 (4.4-11.0)
[2018-04-07 06:34] LABS: Scan Indicated on CBC? Y/N NO
[2018-04-07 06:38] LABS: Anion Gap 7 (5-15); BUN 12 mg/dL (7-18); Calcium,Total 8.8 mg/dL (8.5-10.1); Chloride 114 mmol/L (98-107); Creatinine, Serum 1.34 mg/dL (0.70-1.30); EST Glomerular Filtration Rate 62 mL/min (>60); Est Glom Filt Rate - Afr Amer 75 mL/min (>60); Estimated Creatinine Clearance 70.49 ml/min; Glucose 75 mg/dL (74-106); Potassium 3.9 mmol/L (3.5-5.1); Sodium Level 142 mmol/L (136-145)
[2018-04-07 08:32] VITALS: BP 111/79; PULSE 70; RESP 20; TEMP 36.7; O2SAT 97
[2018-04-07] MEDS: lamoTRIgine 25 MG Tablet PO (08:38)
[2018-04-07] MEDS: NALTREXONE HCL 50 MG TABLET PO (08:38)
[2018-04-07] MEDS: Loratadine 10 MG Tablet PO (08:38)
[2018-04-07] MEDS: lamoTRIgine 100 MG Tablet 200 MG PO (08:38)
[2018-04-07] MEDS: FLUoxetine 20 MG Capsule 80 MG PO (08:38)
[2018-04-07] MEDS: Pantoprazole Sodium 20 MG Tablet PO (08:38)
[2018-04-07] MEDS: Gemfibrozil 600 MG Tablet PO (08:38)
[2018-04-07] MEDS: Propranolol 40 MG Tablet PO (08:38)
[2018-04-07] MEDS: Ziprasidone IM 20 MG/ML VIAL IM ×2 (08:39→11:08)
--- NOTE | 2018-04-07 09:38 | CASEMGMT ---
Addendum entered by Isabelle Ku 04/07/18 10:54: SW spoke w/physician again, she asked when Dale will be here from [facility]. SW called, he will not be here until this afternoon, and the director of crisis, Anant Cornejo, is also out of the office and will not be there until after 12pm. SW left a message requesting one of them call this SW back. RENALDO Howell, [employer] Original Note: CECILIO spoke w/physician, confirmed pt is medically stable and needs seen by crisis today for psych placement. CECILIO called [facility], spoke w/Anant who states Dale Sosa will be here this morning to see pt. Clinical information printed for Dale. CECILIO remains available for any additional assist. RENALDO Howell, [employer]SEMBLER
--- NOTE | 2018-04-07 09:47 | PN_ITS ---
Patient Problems: Active and Suspected Problems (Last Reviewed 03/09/18 @ 09:11 by Terri Petty ) EDITH (acute kidney injury) (Acute) Subjective: All events of the past 24 hours of been reviewed. Afebrile since admission. Vital signs are stable. He is 95-97% saturated on room air. Laboratory: White blood cell count today is 12.1 and the elevation is likely secondary to severe agitation as he is afebrile and has no obvious signs of infection. Hemoglobin is stable at 10.5. Creatinine is 1.34 today, down from 2.72 at admission with administration of IV fluids for severe dehydration. He was very agitated last night per his night nurse. He required IV Haldol and this had little effect on him. He was aggressive and irrational. He has not slept in 4 days. Poor intake...only took 590 PO yesterday. He is shaking the side rails trying to get them down and he is reaching for things on his bedside table that are not there. Having jerking and pulling IV' s out and telemetry leads off. Not making sense when he talks at times. He is able to take deep breaths when I ask him to and I can distract him. He is not aggressive or violent with me. Sppech is still slurred - no change from yesterday. MM are still dry. He keeps pulling out his IV's and currently fluids not running. - Physical Exam General: Confused, Disoriented, - - looks drowsy but is hyperactive at the same time HEENT: Atraumatic, PERRLA, EOMI, Normocephalic Oral: Dry Mucosa Neck: Supple, No Nodes, Trachea Midline Lungs: Clear to auscultation, Normal air movement Cardiovascular: Regular rate, Regular Rhythm, Normal S1, Normal S2, No murmurs, No rub noted, No Gallop Abdomen: Bowel Sounds Present, Soft, Non Tender, Non-Distended Extremities: No edema Skin: No rashes Neurological: Cranial nerves II-XII grossly intact, Neuro grossly intact Psych/Mental Status: Hallucinations, Irrational Behavior, Manic Vital Signs Temp Pulse Resp BP Pulse Ox 98.0 F 70 20 H 111/79 97 04/07/18 08:32 04/07/18 08:32 04/07/18 08:32 04/07/18 08:32 04/07/18 08:32 Oxygen Flow Rate (L/min) 2 Oxygen Delivery Method Room Air Weight: 153 lb 0.013 oz Intake and Output for Last 24 Hours 04/05/18 04/06/18 04/07/18 23:59 23:59 23:59 Intake Total 261 / 261 3056 / 3056 1270 / 1270 Balance 261 / 261 3056 / 3056 1270 / 1270 Laboratory Tests Past 24 Hrs 04/07/18 04/07/18 06:10 06:10 WBC 12.1 H RBC 3.71 L Hgb 10.7 L Hct 32.1 L MCV 86.5 MCH 28.8 MCHC 33.3 RDW 12.1 RDW Differential 38.9 Plt Count 344 MPV 9.6 Sodium 142 Potassium 3.9 Chloride 114 H Carbon Dioxide 21.0 Anion Gap 7 BUN 12 Creatinine 1.34 H Estim Creat Clear Calc 70.49 Est GFR (MDRD) Af Amer 75 Est GFR (MDRD) Non-Af 62 BUN/Creatinine Ratio 9.0 L Glucose 75 Calcium 8.8 Medical Necessity - Tobacco Use Smoking Status: Former smoker Tobacco Use: Cigarettes Assessment/Plan All Active Problems (Last Reviewed 03/09/18 @ 09:11 by Terri Petty) EDITH (acute kidney injury) (Acute) History of neck surgery (Resolved) History of extraction of renal calculus (Resolved) History of rhinoplasty (Resolved) Abnormal liver function test (Acute) Left upper lobe pneumonia (Acute) Alcohol withdrawal with delirium (Acute) GERD (gastroesophageal reflux disease) (Acute) Hallucination, visual (Acute) Impressions 1. hx of BPD with acute luis - possibly precipitated by the recent drama last Tuesday over his 11 YO dtr. He feels that she is not in a safe environment with the mother and the dtr went to the aunt and not to him and somehow CPS was called and the police. He denies suicidal ideation. He was willing to go voluntarily to a psychiatric facility for stabilization however today he wants to go home to his father's house 2. hx of alcoholism - stopped 2 months ago 3. tobacco dependence 4. Acute kidney injury secondary to dehydration - continues to improve the the Creat today is 1.36 5. Schizoaffective disorder 6. Hypertriglyceridemia 7. Hepatitis C with abnormal transaminases 8. COPD 9. Nephrolithiasis 10. History of substance abuse but making attempts to quit all addictive behaviors. He has been following up at [facility]...... campground was not working for him and he was recently started on naltrexone by 180 to suppress the craving for alcohol He received IV Haldol last night with no improvement. Was up all night and very agitated....at one point he had ripped out the IV and the telemetry leads and had the IV pole in bed with him. He continues to hallucinate. He received 20 mg of IM Geodon approximately 1 hour ago and although he is staying in bed he is trying to get out of bed and still has jerking movements and is trying to pull the bed controls apart. He is shaking the bed rails trying to get them down. Will give 2 mg of IV Ativan now. Awaiting the platform worker to reevaluate this a.m. so that he may be transferred to a psychiatric facility and stabilized. Medically he is stable for discharge. Code Visit Inpatient E&M: 76869 Subs Hosp L2
[2018-04-07] MEDS: 0.9% NaCl Peripheral Flush Adult/Peds IV ×5 (10:27→20:45)
[2018-04-07] MEDS: LORazepam 2 MG/ML Syringe IV ×5 (10:27→20:46)
--- NOTE | 2018-04-07 10:40 | NURSING ---
One time Ativan IV given. Pt with very large jerking movements very frequently, not able to make conversation at this time, very slurred speech, pt sweating. Dr. Martin in room at this time, stated to give another dose of IV Ativan in 30 minutes if previous dose ineffective.
[2018-04-07 11:55] VITALS: BP 109/68; PULSE 68; RESP 14; O2SAT 95
[2018-04-07 16:45] VITALS: BP 98/67; PULSE 75; RESP 20; TEMP 36.6; O2SAT 92
--- NOTE | 2018-04-07 18:57 | NURSING ---
starting to jerk around in the bed again and holler out. 2 mg ativan given
--- NOTE | 2018-04-07 19:10 | NURSING ---
Pt moved to ICU 8 at this time. Report given to RICHARD Ghotra. Pt with jerking movements when transferred to ICU bed, settled after moving. Dr. Martin in room.
[2018-04-07 20:30] VITALS: O2SAT 97
[2018-04-07 20:37] VITALS: BP 93/71; PULSE 83; RESP 22; TEMP 36.7; O2SAT 97
--- NOTE | 2018-04-12 08:29 | PCM.DC.SUM ---
Discharge Date and Diagnosis Date of Admission: 04/05/18 Date of Discharge: 04/07/18 - Primary Discharge Diagnosis BPD with acute luis Acute kidney injury secondary to dehydration - Secondary Discharge Diagnosis Chronic Problems (Last Reviewed 03/09/18 @ 09:11 by Terri Petty) Bipolar disorder (Chronic) Tobacco abuse (Chronic) Hearing loss (Chronic) Weakness (Chronic) Abnormal chest xray (Chronic) Hypertriglyceridemia (Chronic) Hepatitis (Chronic) Bilateral knee pain (Chronic) Osteoarthritis (Chronic) Palpitations (Chronic) Dizziness (Chronic) Unsteady gait (Chronic) Tremor (Chronic) Stage 2 moderate COPD by GOLD classification (Chronic) Kidney stone (Chronic) Chronic alcoholism (Chronic) Hospital Course and Treatment Imaging Results: Clinical Impression(s) from Imaging Studies Brain CT 04/05/18 11:45 IMPRESSION: No acute abnormality is seen. Electronically Signed: Malik Ignacio MD at 14:25 EDT Tel [phone], Service support , Chest X-Ray 04/05/18 12:00 IMPRESSION: Normal x-ray examination of the chest. Electronically Signed: Malik Ignacio MD at 14:19 EDT Tel [phone], Service support , Laboratory Results - last 24 hr 04/05/18 11:00 Miscellaneous Test Consultations 04/07/18 11:00 Consult: Mental Health/Crisis Routine Reason for consult?: pt having manic episode, needs inpt psych placement Date Notified:: 04/06/18 Time notified:: 12:45 Operations: None Procedures: None Summary of Care Provided: Patient is a 43-year-old male with a past medical history of bipolar disorder, schizoaffective disorder, tobacco dependence, hypertriglyceridemia, history of hepatitis C, COPD, nephrolithiasis, substance abuse and alcoholism who presented to the emergency room at [facility] on 04/05/2018 complaining of hallucinations and manic behavior for 1 week per his . He follows with [facility] and the counseling center. He quit drinking approximately 2 months ago. He was on Campral which he quit 2 weeks prior to presenting to the ER when he was started on Naltrexone to suppress the craving for alcohol. Vital signs at presentation to the emergency room were temperature 96.7, pulse rate 68, blood pressure 92/59, respiratory rate 18 and he was 100% saturated on room air. White blood cell count was 8.3 with an unremarkable differential. Hemoglobin was 11.3 and platelets were within normal limits. Potassium is mildly decreased at 3.4. BUN was 40 and the creatinine was 2.72, up from 1.67 on 03/29/2018. AST and ALT are mildly elevated at [address] showed no acute abnormality. Chest x-ray was normal. Urine tox screen is positive for barbiturates, methamphetamine and cannabis. Confirmatory test for amphetamines was negative and the positive results were falls secondary to taking Wellbutrin. The Ethyl alcohol was less than 3.0. He was admitted to the hospital with a diagnosis of acute luis and ARF due to dehydration. IV fluids were ordered and his regular medications were continued. On 04/08 the creat was 1.34, down from 2.72 at admission. On that day he was very agitated/aggressive and had not slept in 4 days. Appetite and intake were poor. He was given 2 doses of IM Geodon that morning to control behavior. In addition to Geodon he was started on IV Ativan 2 mg Q 2H as needed. He was medically stable but at [facility] we have no psychiatrist/psychiatric services and the Crisis counsellor was consulted for transfer to a psychiatric facility where the luis could be managed. He was transferred to a [facility] on 04/07 by ambulance. Home Medications: Medications to take at Discharge Cyclobenzaprine [Flexeril] 10 mg PO TID PRN PRN 04/05/18 Diclofenac [Voltaren] 50 mg PO BID 04/05/18 Fluoxetine [Prozac] 80 mg PO DAILY 04/05/18 Gemfibrozil [Lopid] 600 mg PO BID 04/05/18 Hydroxyzine Pamoate [Vistaril] 50 mg PO BID 04/05/18 Lamotrigine 200 mg PO DAILY 04/05/18 Lamotrigine [Lamictal Xr] 50 mg PO QHS 04/05/18 Loratadine 10 mg PO DAILY 04/05/18 Naltrexone HCl 50 mg PO DAILY 04/05/18 Omeprazole 20 mg PO DAILY 04/05/18 Propranolol HCl 40 mg PO BID 04/05/18 Ziprasidone HCl [Geodon] 40 mg PO QHS 04/05/18 traZODone [Desyrel] 200 mg PO DAILY 04/05/18 Primary Care Physician: Briseida Bartlett DO [Primary Care Provider] - Disposition: Psych Hospital or Unit Minutes spent on discharge:: 30 Patient Condition:: Guarded Medical Necessity - Tobacco Use Smoking Status: Former smoker Tobacco Use: Cigarettes Meaningful Use Info Meaningful Use Diagnoses (Choose all that apply): None applicable Code Visit Inpatient E&M: 47805 Disch Hosp
--- NOTE | 2018-04-12 08:39 | DS.PCM_ITS ---
Discharge Date and Diagnosis Date of Admission: 04/05/18 Date of Discharge: 04/07/18 - Primary Discharge Diagnosis BPD with acute luis Acute kidney injury secondary to dehydration - Secondary Discharge Diagnosis Chronic Problems (Last Reviewed 03/09/18 @ 09:11 by Terri Petty) Bipolar disorder (Chronic) Tobacco abuse (Chronic) Hearing loss (Chronic) Weakness (Chronic) Abnormal chest xray (Chronic) Hypertriglyceridemia (Chronic) Hepatitis (Chronic) Bilateral knee pain (Chronic) Osteoarthritis (Chronic) Palpitations (Chronic) Dizziness (Chronic) Unsteady gait (Chronic) Tremor (Chronic) Stage 2 moderate COPD by GOLD classification (Chronic) Kidney stone (Chronic) Chronic alcoholism (Chronic) Hospital Course and Treatment Imaging Results: Clinical Impression(s) from Imaging Studies Brain CT 04/05/18 11:45 IMPRESSION: No acute abnormality is seen. Electronically Signed: Malik Ignacio MD at 14:25 EDT Tel [phone], Service support , Chest X-Ray 04/05/18 12:00 IMPRESSION: Normal x-ray examination of the chest. Electronically Signed: Malik Ignacio MD at 14:19 EDT Tel [phone], Service support , Laboratory Results - last 24 hr 04/05/18 11:00 Miscellaneous Test Consultations 04/07/18 11:00 Consult: Mental Health/Crisis Routine Reason for consult?: pt having manic episode, needs inpt psych placement Date Notified:: 04/06/18 Time notified:: 12:45 Operations: None Procedures: None Summary of Care Provided: Patient is a 43-year-old male with a past medical history of bipolar disorder, schizoaffective disorder, tobacco dependence, hypertriglyceridemia, history of hepatitis C, COPD, nephrolithiasis, substance abuse and alcoholism who presented to the emergency room at [facility] on 04/05/2018 complaining of hallucinations and manic behavior for 1 week per his . He follows with [facility] and the counseling center. He quit drinking approximately 2 months ago. He was on Campral which he quit 2 weeks prior to presenting to the ER when he was started on Naltrexone to suppress the craving for alcohol. Vital signs at presentation to the emergency room were temperature 96.7, pulse rate 68, blood pressure 92/59, respiratory rate 18 and he was 100% saturated on room air. White blood cell count was 8.3 with an unremarkable differential. Hemoglobin was 11.3 and platelets were within normal limits. Potassium is mildly decreased at 3.4. BUN was 40 and the creatinine was 2.72, up from 1.67 on 03/29/2018. AST and ALT are mildly elevated at [address] showed no acute abnormality. Chest x-ray was normal. Urine tox screen is positive for barbiturates, methamphetamine and cannabis. Confirmatory test for amphetamines was negative and the positive results were falls secondary to taking Wellbutrin. The Ethyl alcohol was less than 3.0. He was admitted to the hospital with a diagnosis of acute luis and ARF due to dehydration. IV fluids were ordered and his regular medications were continued. On 04/08 the creat was 1.34, down from 2.72 at admission. On that day he was very agitated/aggressive and had not slept in 4 days. Appetite and intake were poor. He was given 2 doses of IM Geodon that morning to control behavior. In addition to Geodon he was started on IV Ativan 2 mg Q 2H as needed. He was medically stable but at [facility] we have no psychiatrist/psychiatric services and the Crisis counsellor was consulted for transfer to a psychiatric facility where the luis could be managed. He was transferred to a [facility] on 04/07 by ambulance. Home Medications: Medications to take at Discharge Cyclobenzaprine [Flexeril] 10 mg PO TID PRN PRN 04/05/18 Diclofenac [Voltaren] 50 mg PO BID 04/05/18 Fluoxetine [Prozac] 80 mg PO DAILY 04/05/18 Gemfibrozil [Lopid] 600 mg PO BID 04/05/18 Hydroxyzine Pamoate [Vistaril] 50 mg PO BID 04/05/18 Lamotrigine 200 mg PO DAILY 04/05/18 Lamotrigine [Lamictal Xr] 50 mg PO QHS 04/05/18 Loratadine 10 mg PO DAILY 04/05/18 Naltrexone HCl 50 mg PO DAILY 04/05/18 Omeprazole 20 mg PO DAILY 04/05/18 Propranolol HCl 40 mg PO BID 04/05/18 Ziprasidone HCl [Geodon] 40 mg PO QHS 04/05/18 traZODone [Desyrel] 200 mg PO DAILY 04/05/18 Primary Care Physician: Briseida Bartlett DO [Primary Care Provider] - Disposition: Psych Hospital or Unit Minutes spent on discharge:: 30 Patient Condition:: Guarded Medical Necessity - Tobacco Use Smoking Status: Former smoker Tobacco Use: Cigarettes Meaningful Use Info Meaningful Use Diagnoses (Choose all that apply): None applicable Code Visit Inpatient E&M: 94973 Disch Hosp
== END 2018-04-07 22:15 | disposition designated cancer center or children's hospital (05) | DRG 316 ==
LOC: ED 10:29 → MS2 15:55 → MS3 04-07 17:11 → ICU 04-07 19:00
PROVIDERS: Admitting Provider Hospitalist; Emergency Provider Emergency Medicine; Family Provider Family Medicine; PCP Family Medicine; Visit Provider Internal Medicine
DX: N17.9 Acute kidney failure, unspecified (principal); B19.20 Unspecified viral hepatitis C without hepatic coma; E86.0 Dehydration; J44.9 Chronic obstructive pulmonary disease, unspecified; F25.9 Schizoaffective disorder, unspecified; F31.9 Bipolar disorder, unspecified; E78.1 Pure hyperglyceridemia; N20.0 Calculus of kidney; F17.200 Nicotine dependence, unspecified, uncomplicated; F10.21 Alcohol dependence, in remission
CPT/HCPCS: 36415; 70450; 71046; 80048; 80053; 80307; 80320; 81001; 82140; 83690; 85025; 85027; 93005; 97802; 99285; J7030; A4216; G0480; J3486

== ENCOUNTER → 2018-05-25 12:23 | Outpatient (CLI) | payer MEDICAID, SELFPAY ==
[2018-05-25 12:44] VITALS: PULSE 103; PULSE 111; PULSE 113; PULSE 115; PULSE 118; PULSE 119; PULSE 122; PULSE 124; O2SAT 103; O2SAT 98; O2SAT 99
--- NOTE | 2018-05-25 14:27 | WT_ITS ---
PSN 6 Minute Walk Test - 6 Minute Walk Test 6 Minute Walk Test: 6 Minute Walk Test PSN:6-Minute Walk Test Start: 05/25/18 12: 44 Freq: Status: Active Protocol: RESP.6MINW Document 05/25/18 12:44 SMB (Rec: 05/25/18 12:48 SMB [id number]) 6 Minute Walk Test Date Performed 05/25/18 Time Performed 12:29 Height 6 ft 1 in Weight: 70.307 kg Weight in Pounds 155.[address]: Tammie Lopez Assistive device used: None Pre-test Oxygen Delivery Method Room Air Pulse Ox (%) 103 Pulse Rate (60-100 beats/min) 103 H Dyspnea Emanuel Scale (0-10) 1 Exertion Emanuel Scale (6-20) 11 1st minute Oxygen Delivery Method Room Air Pulse Ox (%) 98 Pulse Rate (60-100 beats/min) 111 H 2nd minute Oxygen Delivery Method Room Air Pulse Ox (%) 98 Pulse Rate (60-100 beats/min) 113 H 3rd minute Oxygen Delivery Method Room Air Pulse Ox (%) 98 Pulse Rate (60-100 beats/min) 115 H 4th minute Oxygen Delivery Method Room Air Pulse Ox (%) 98 Pulse Rate (60-100 beats/min) 122 H 5th minute Oxygen Delivery Method Room Air Pulse Ox (%) 98 Pulse Rate (60-100 beats/min) 118 H 6th minute Oxygen Delivery Method Room Air Pulse Ox (%) 98 Pulse Rate (60-100 beats/min) 119 H Post-test Oxygen Delivery Method Room Air Pulse Ox (%) 99 Pulse Rate (60-100 beats/min) 124 H Dyspnea Emanuel Scale (0-10) 2 Exertion Emanuel Scale (6-20) 11 Reported Symptoms Increased Work of Breathing Full Laps Walked 17 Partial Lap, Number of Tiles Walked 28 Total Distance Walked (ft) 1031 - Interpretation Interpretation: The patient was able to ambulate 1031 feet over the course of 6 minutes on room air with no assistive devices or breaks. The patient experienced no significant desaturation, but did have tachycardia with a peak heart rate of 122 bpm. These findings are consistent with a cardiovascular limitation exercise tolerance. - Recommendations Recommendations: No supplemental oxygen is indicated at this time.
== END ==
PROVIDERS: Family Provider Family Medicine; PCP Family Medicine; Visit Provider Nurse Practitioner Acute Care
DX: J44.9 Chronic obstructive pulmonary disease, unspecified (principal)
CPT/HCPCS: 94618

== ENCOUNTER → 2018-05-29 07:53 | Outpatient (CLI) | payer MEDICAID, SELFPAY ==
--- NOTE | 2018-05-29 12:53 | PFT ---
INTRODUCTION: The patient is a 43-year-old male that presents for pulmonary function testing secondary to a diagnosis of COPD. Respiratory therapy reports good patient effort and reports no other concerns. Bronchodilators were used during testing. INTERPRETATION: Forced expiration spirometry demonstrates no evidence of a large airways obstructive ventilatory defect. There was no significant response to aerosolized bronchodilators, based upon strict ATS criteria. Spirograms are of good quality but do not plateau indicating slow emptying of the lungs. The respiratory flow volume loop appears normal. Body plethysmography was performed and reveals lung volumes to be within normal limits. Diffusing capacity by single breath CO is mildly reduced at 66% of predicted. When compared to previous pulmonary function studies dated January 2018, there has been a 13% reduction in DLCO. IMPRESSION: These pulmonary function studies demonstrate the presence of an isolated mild reduction in diffusing capacity. There has been worsening the patient's DLCO since PFTs were last obtained in January 2018, as noted above.
== END ==
PROVIDERS: Family Provider Family Medicine; PCP Family Medicine; Visit Provider Internal Medicine Critical Care Medicine
DX: J44.9 Chronic obstructive pulmonary disease, unspecified (principal)
CPT/HCPCS: 94060; 94726; 94729

== ENCOUNTER 2018-06-23 18:41 | Emergency (ER) | payer MEDICAID, SELFPAY ==
[2018-06-23 18:41] VITALS: BP 119/79; PULSE 115; RESP 16; TEMP 36.8; O2SAT 97; BMI 21.1
[2018-06-23 19:41] LABS: Color, Urine Yellow (Yellow); Glucose, Dipstick Normal (Normal); Ketone-Dipstick 5 mg/dl (Negative); Leukocyte Esterase-Dipstick 100 /ul (Negative); Nitrite-Dipstick Negative (Negative); Occult Blood-Urine 25 /ul (Negative); Protein-Dipstick 100 mg/dl (Negative); Specific Gravity, Urine 1.015 (1.002-1.030); Urine Clarity Sl. Cloudy (Clear); Urine Urobilinogen 1 mg/dl (Normal)
[2018-06-23 19:50] LABS: Urine Bilirubin Dipstick 1 mg/dL (Negative)
[2018-06-23 19:53] LABS: Red Blood Cells-Urine 0-5 SEEN /hpf (0-5); Squamous Epithelial Cells - UA 25-50 SEEN /hpf (0-5); White Blood Cells 25-50 SEEN /hpf (0-5)
[2018-06-23 19:54] LABS: Renal Epithelial Cells 0-5 SEEN /hpf (0-5); Transitional Epithelial - Ur 0-5 SEEN /hpf (0-5)
[2018-06-23 19:55] LABS: Bacteria 2+ /hpf (None Seen); Hyaline Cast 0-5 SEEN /lpf (0-5); Mucous, Urine 1+ /hpf (<or=2+)
[2018-06-23 19:57] LABS: Absolute Lymphocyte Count 4.15 X10^3/ul (0.83-4.51); Absolute Neutrophil Count 12.3 X10^3/uL (2.0-7.7); Basophil# 0.04 X10^3/uL; Basophil% 0.2 % (0-1); Eosinophil# 0.16 X10^3/uL; Eosinophils% 0.9 % (0-5); Hematocrit 37.6 % (40-54); Hemoglobin 12.1 g/dl (13.0-16.5); Lymphocyte # 4.15 X10^3/ul (4.0); Lymphocyte % 22.6 % (19-41); Mean Corp Hgb Conc 32.2 g/gl (32-36); Mean Corpuscular Hgb 27.3 pg (27.0-32.0); Mean Corpuscular Volume 84.7 fL (80-94); Mean Platelet Vol. 9.7 fl (6.2-12.0); Monocyte# 1.59 X10^3/uL; Monocyte% 8.7 % (0-10); Neutrophil # 12.34 X10^3/uL (2.7-7.7); Neutrophil % 67.3 % (47-70); Platelet Count 528 K/mm3 (150-450); RBC Distribution Width SD 46.6 fl (35.1-43.9); Red Blood Count 4.44 M/mm3 (4.6-6.2); White Blood Count 18.3 K/mm3 (4.4-11.0)
[2018-06-23 20:00] LABS: Anion Gap 12 (5-15); BUN 24 mg/dL (7-18); BUN/Creat Ratio 11.3 RATIO (10-20); Calcium,Total 9.2 mg/dL (8.5-10.1); Chloride 104 mmol/L (98-107); Creatinine, Serum 2.12 mg/dL (0.70-1.30); EST Glomerular Filtration Rate 37 mL/min (>60); Est Glom Filt Rate - Afr Amer 44 mL/min (>60); Glucose 108 mg/dL (74-106); Potassium 3.6 mmol/L (3.5-5.1); Sodium Level 138 mmol/L (136-145)
[2018-06-23 20:01] LABS: Fine Granular Cast- Urine 0-5 SEEN /lpf (0-5)
--- NOTE | 2018-06-23 20:12 | ED.VISSUMM ---
- ER Visit Summary Date of Service: 06/23/18 Chief Complaint: Diffuse abdominal pain. History of Present Illness: The patient is a 43 M prior kidney stones, anemia, renal insufficiency, schizoaffective disorder with no prior abdominal surgeries. Patient states he has had midabdominal pain for approximately 1 week. He had nausea, vomiting and diarrhea last week but is resolved in the last several days. No dysuria or melena. No fever. States is in his both his upper and lower abdomen. It is not severe. He denies any bloody urine. He denies any back pain. Nothing specifically makes the pain better or makes the pain worse. Physical Examination: Well-appearing middle-age male. Vital signs are stable afebrile. He does not look septic or toxic. He is in no acute distress. HEENT exam unremarkable. Neck nontender. Lungs clear to auscultation bilaterally. Heart regular rhythm rate about 105. No murmur. Abdomen is soft and nontender. Normal bowel sounds no peritoneal signs. The right upper and lower quadrants are both completely unremarkable. There is no hernias or masses. There is no distention or signs of obstruction. Patient is moving all 4 extremities. Neurovascularly intact. Back nontender. Neurologic exam unremarkable. No motor deficits. External exam is unremarkable. Test Results: 18.3. Hemoglobin hematocrit 12 and 37. Elevated platelets 528,000. Electrolytes unremarkable patient does have renal insufficiency with a creatinine 2.1. Normal gap. Liver enzymes are unremarkable. Lipase is unremarkable to 96. Urine shows 25-50 white cells but is contaminated with 25-50 epithelial cells. 2+ bacteria. He had no urinary symptoms. CT of the abdomen and pelvis without contrast due to the patient's renal insufficiency he has bilateral renal stones. A small hernia. There appears to be a fluid collection in a colovesical space between the colon and bladder. This may be blood or infectious etiology the radiologist is on your. The radiation oncologist and I discussed his reading. There is no free air. No signs of any type of perforation. Emergency Department Course and Treatment: With diffuse nonspecific abdominal pain with a very very benign abdominal exam. Treatment Plan: I have done several repeat abdominal exams on the patient and are all benign. Repeat temperature remains 98?. He does not look septic or toxic or in any distress. I discussed all the patient's test with the patient's. I also discussed his care and follow-up with Dr. Leeanne Doan of general surgery. Patient's abdomen is benign. He is afebrile. I do not feel he needs admission. Nor does Dr. Doan. Patient will be started on Cipro and Flagyl for possible infectious etiology. And will follow up with Dr. Doan this coming week. I discussed all the test results with both he and his significant other and are comfortable with the plan. Disposition: Discharge Impression: Acute abdominal pain of uncertain etiology Atypical suspected infectious fluid collection between his bladder and colon History of schizoaffective disorder This note was generated with [employer] software. It may contain incorrect words, spelling, and punctuation that were not noted in review of the chart prior to signing ED Disposition - Plan for ED Patient: Disposition: Home or Assisted Living Chief Complaint: Abd Pain Instructions: ED Abdominal Pain Unkn Cause Referrals: Briseida Bartlett DO [Primary Care Provider] - As soon as possible Additional Instructions: Tylenol for pain. Call and follow-up your primary care physician on Tuesday. Return to the ER if increasing pain, intractable vomiting, fever or feeling worse.
[2018-06-23 20:36] LABS: AST(SGOT) 32 U/L (15-37); Alanine Aminotransfer ALT/SGPT 32 U/L (16-61); Albumin, Serum 3.9 g/dL (3.2-5.0); Alkaline Phosphatase 153 U/L (45-117); Globulin 4.1 g/dL (2.2-4.2)
[2018-06-23 20:44] LABS: Differential Indicated SCAN CRITERIA MET; POSITIVE COUNT NO; POSITIVE DIFFERENTIAL YES; POSITIVE MORPHOLOGY YES
[2018-06-23 20:51] LABS: Lipase 296 U/L (73-393)
[2018-06-23 21:09] LABS: Differential Comment SCANNED; Platelet Estimate SLT INC (ADEQ)
[2018-06-23 21:38] VITALS: BP 115/96; PULSE 87; RESP 18; O2SAT 100
[2018-06-23 23:00] VITALS: PULSE 78; RESP 16; O2SAT 98
--- NOTE | 2018-06-23 23:52 | ED.DEP ---
ED Disposition - Plan for ED Patient: Disposition: Home or Assisted Living Chief Complaint: Abd Pain Instructions: ED Abdominal Pain Unkn Cause Referrals: Briseida Bartlett DO [Primary Care Provider] - As soon as possible Additional Instructions: Tylenol for pain. Call and follow-up your primary care physician on Tuesday. Return to the ER if increasing pain, intractable vomiting, fever or feeling worse.
[2018-06-24] MEDS: Ciprofloxacin 500 MG Tablet PO (00:19)
[2018-06-24] MEDS: metroNIDAZOLE 500 MG Tablet PO (00:19)
--- NOTE | 2018-06-24 00:20 | ED.DEP ---
ED Disposition - Plan for ED Patient: Disposition: Home or Assisted Living Chief Complaint: Abd Pain Instructions: ED Abdominal Pain Unkn Cause Prescriptions: Metronidazole [Flagyl] 500 mg PO Q8H #30 tab Ciprofloxacin [Cipro] 500 mg PO BID #20 tab Referrals: Leeanne Doan MD [STAFF PHYSICIAN] - As soon as possible Additional Instructions: Tylenol for pain. Call and follow-up your primary care physician on Tuesday. Return to the ER if increasing pain, intractable vomiting, fever or feeling worse. You have some type of fluid collection between her colon and bladder. This may be caused by some type of infection. We will start you on both Cipro and Flagyl for the next 10 days. Call and follow-up with Dr. Leeanne Doan a [facility] general surgeons office on Tuesday.
[2018-06-24 00:28] VITALS: BP 110/73; PULSE 80; RESP 18; O2SAT 97
[2018-06-26 13:40] LABS: Pathologist Review Reviewed
== END 2018-06-24 00:29 | disposition home or self-care (01) ==
PROVIDERS: Emergency Provider Emergency Medicine; Family Provider Family Medicine; PCP Family Medicine
DX: R10.9 Unspecified abdominal pain (principal); N28.9 Disorder of kidney and ureter, unspecified; F25.9 Schizoaffective disorder, unspecified; D64.9 Anemia, unspecified; N20.0 Calculus of kidney; K42.9 Umbilical hernia without obstruction or gangrene; D72.829 Elevated white blood cell count, unspecified; D47.3 Essential (hemorrhagic) thrombocythemia; K21.9 Gastro-esophageal reflux disease without esophagitis; Z72.0 Tobacco use; Z79.899 Other long term (current) drug therapy; Z87.442 Personal history of urinary calculi
CPT/HCPCS: 74176; 80048; 80076; 81001; 83690; 85025; 99284; A4216

== ENCOUNTER → 2018-07-11 10:29 | Outpatient (CLI) | payer MEDICAID, SELFPAY ==
[2018-07-11 12:23] LABS: ALB/GLOB Ratio 0.9 RATIO (0.9-2.4); AST(SGOT) 42 U/L (15-37); Alanine Aminotransfer ALT/SGPT 49 U/L (16-61); Albumin, Serum 3.8 g/dL (3.2-5.0); Alkaline Phosphatase 127 U/L (45-117); Anion Gap 8 (5-15); BUN 21 mg/dL (7-18); BUN/Creat Ratio 17.1 RATIO (10-20); Chloride 108 mmol/L (98-107); Cholesterol 212 mg/dL (200); Creatinine, Serum 1.23 mg/dL (0.70-1.30); EST Glomerular Filtration Rate 68 mL/min (>60); Est Glom Filt Rate - Afr Amer 83 mL/min (>60); Globulin 4.3 g/dL (2.2-4.2); Glucose 87 mg/dL (74-106); High Density Lipoprotein 40 mg/dL; Potassium 3.6 mmol/L (3.5-5.1); Protein, Total 8.1 g/dL (6.4-8.2); Sodium Level 141 mmol/L (136-145); Triglycerides 154 mg/dL; Very Low Density Lipoprotein 31 mg/dL (5-40)
== END ==
PROVIDERS: Family Provider Family Medicine; PCP Family Medicine; Visit Provider Family Medicine
DX: K72.90 Hepatic failure, unspecified without coma (principal); B19.20 Unspecified viral hepatitis C without hepatic coma; E78.1 Pure hyperglyceridemia; R79.89 Other specified abnormal findings of blood chemistry
CPT/HCPCS: 36415; 80053; 80061

== ENCOUNTER → 2018-08-02 08:33 | Outpatient (CLI) | payer MEDICAID, SELFPAY ==
[2018-08-02 12:10] LABS: Absolute Lymphocyte Count 3.48 X10^3/ul (0.83-4.51); Absolute Neutrophil Count 8.2 X10^3/uL (2.0-7.7); Basophil# 0.06 X10^3/uL; Basophil% 0.4 % (0-1); Eosinophil# 0.61 X10^3/uL; Eosinophils% 4.5 % (0-5); Lymphocyte # 3.48 X10^3/ul (4.0); Lymphocyte % 25.8 % (19-41); Mean Corp Hgb Conc 32.4 g/gl (32-36); Mean Corpuscular Hgb 27.1 pg (27.0-32.0); Mean Corpuscular Volume 83.5 fL (80-94); Mean Platelet Vol. 10.3 fl (6.2-12.0); Monocyte# 1.09 X10^3/uL; Monocyte% 8.1 % (0-10); Neutrophil # 8.22 X10^3/uL (2.7-7.7); Neutrophil % 60.9 % (47-70); Platelet Count 532 K/mm3 (150-450); RBC Distribution Width CV 15.1 % (11.6-14.6); RBC Distribution Width SD 45.1 fl (35.1-43.9); Red Blood Count 4.43 M/mm3 (4.6-6.2); White Blood Count 13.5 K/mm3 (4.4-11.0)
[2018-08-02 12:14] LABS: POSITIVE COUNT NO; POSITIVE DIFFERENTIAL NO; POSITIVE MORPHOLOGY NO
[2018-08-02 12:17] LABS: ALB/GLOB Ratio 0.8 RATIO (0.9-2.4); AST(SGOT) 33 U/L (15-37); Alanine Aminotransfer ALT/SGPT 32 U/L (16-61); Albumin, Serum 3.6 g/dL (3.2-5.0); Alkaline Phosphatase 176 U/L (45-117); Anion Gap 8 (5-15); BUN 18 mg/dL (7-18); BUN/Creat Ratio 13.5 RATIO (10-20); Calcium,Total 9.4 mg/dL (8.5-10.1); Chloride 109 mmol/L (98-107); Creatinine, Serum 1.33 mg/dL (0.70-1.30); EST Glomerular Filtration Rate 63 mL/min (>60); Est Glom Filt Rate - Afr Amer 76 mL/min (>60); Globulin 4.5 g/dL (2.2-4.2); Glucose 88 mg/dL (74-106); Potassium 4.4 mmol/L (3.5-5.1); Protein, Total 8.1 g/dL (6.4-8.2); Sodium Level 142 mmol/L (136-145)
== END ==
PROVIDERS: Family Provider Family Medicine; PCP Family Medicine; Visit Provider Family Medicine
DX: R53.83 Other fatigue (principal); R79.89 Other specified abnormal findings of blood chemistry
CPT/HCPCS: 36415; 80053; 85025

== ENCOUNTER → 2018-12-07 15:10 | Outpatient (CLI) | payer MEDICAID, SELFPAY ==
[2018-10-05 10:17] VITALS: BMI 22.8
[2018-12-07 17:59] LABS: Absolute Lymphocyte Count 4.45 X10^3/ul (0.83-4.51); Absolute Neutrophil Count 8.8 X10^3/uL (2.0-7.7); Basophil# 0.07 X10^3/uL; Basophil% 0.5 % (0-1); Eosinophil# 0.95 X10^3/uL; Eosinophils% 6.2 % (0-5); Hematocrit 39.1 % (40-54); Hemoglobin 12.3 g/dl (13.0-16.5); Lymphocyte # 4.45 X10^3/ul (4.0); Lymphocyte % 28.9 % (19-41); Mean Corp Hgb Conc 31.5 g/gl (32-36); Mean Corpuscular Hgb 25.8 pg (27.0-32.0); Mean Corpuscular Volume 82.1 fL (80-94); Mean Platelet Vol. 9.7 fl (6.2-12.0); Monocyte% 7.1 % (0-10); Neutrophil # 8.79 X10^3/uL (2.7-7.7); Platelet Count 487 K/mm3 (150-450); RBC Distribution Width CV 14.5 % (11.6-14.6); RBC Distribution Width SD 43.2 fl (35.1-43.9); Red Blood Count 4.76 M/mm3 (4.6-6.2); White Blood Count 15.4 K/mm3 (4.4-11.0)
[2018-12-07 18:01] LABS: POSITIVE COUNT NO; POSITIVE DIFFERENTIAL NO; POSITIVE MORPHOLOGY NO
[2018-12-07 18:14] LABS: ALB/GLOB Ratio 0.8 RATIO (0.9-2.4); AST(SGOT) 27 U/L (15-37); Alanine Aminotransfer ALT/SGPT 21 U/L (16-61); Albumin, Serum 3.9 g/dL (3.2-5.0); Alkaline Phosphatase 201 U/L (45-117); Anion Gap 8 (5-15); BUN 19 mg/dL (7-18); BUN/Creat Ratio 12.6 RATIO (10-20); Calcium,Total 9.2 mg/dL (8.5-10.1); Chloride 110 mmol/L (98-107); Creatinine, Serum 1.51 mg/dL (0.70-1.30); EST Glomerular Filtration Rate 54 mL/min (>60); Est Glom Filt Rate - Afr Amer 65 mL/min (>60); Globulin 4.9 g/dL (2.2-4.2); Glucose 89 mg/dL (74-106); Potassium 4.1 mmol/L (3.5-5.1); Protein, Total 8.8 g/dL (6.4-8.2); Sodium Level 141 mmol/L (136-145)
== END ==
PROVIDERS: Family Provider Family Medicine; PCP Family Medicine; Visit Provider Family Medicine
DX: B19.20 Unspecified viral hepatitis C without hepatic coma (principal); R79.89 Other specified abnormal findings of blood chemistry; K72.90 Hepatic failure, unspecified without coma
CPT/HCPCS: 36415; 80053; 82140; 85025

== ENCOUNTER → 2019-01-22 13:39 | Outpatient (CLI) | payer MEDICAID, SELFPAY ==
[2018-10-05 10:17] VITALS: BMI 22.8
--- NOTE | 2019-01-22 13:46 | RAD_ITS ---
STUDY: X-RAY - ABDOMEN/PELVIS REASON FOR EXAM: Male, 44 years old. History of kidney stones. Currently not having any pain TECHNIQUE: 2 view COMPARISON: December 15, 2017 FINDINGS: There is a 3.8 mm calculus projecting over the left upper quadrant. It is probably a calyceal calculus. No similar findings are seen on the right side. There are 2 calcifications in the pelvis. That on the left may be within the ureter. The right calcification is probably a phlebolith. The bones and joints are normal. There is no bowel distention or free intraperitoneal air. RAD/Abdomen Single View IMPRESSION: A 3.8 mm calculus in the left upper quadrant. It is most probably a left calyceal calculus. No evidence of intestinal obstruction Electronically Signed: Zbigniew Bernard MD at 3:51 EDT Tel , Service support ,
== END ==
PROVIDERS: Family Provider Family Medicine; PCP Family Medicine
DX: N20.0 Calculus of kidney (principal)
CPT/HCPCS: 74018

== ENCOUNTER → 2019-03-20 13:15 | Outpatient (CLI) | payer MEDICAID, SELFPAY ==
[2018-10-05 10:17] VITALS: BMI 22.8
--- NOTE | 2019-03-21 08:13 | PFT ---
INTRODUCTION: The patient is a 44-year-old male that presents for pulmonary function studies secondary to a diagnosis of COPD. Respiratory therapy reports good patient effort. Bronchodilators were used during testing. INTERPRETATION: Forced expiration spirometry demonstrates no evidence of a large airways obstructive ventilatory defect. There was no significant response to aerosolized bronchodilators, based upon strict ATS criteria. Spirograms are of good quality and plateau gradually. Body plethysmography was performed which revealed lung volumes to be within normal limits. Diffusing capacity by single breath CO is reduced at 65% of predicted. IMPRESSION: Isolated mild reduction in diffusing capacity, which could be related to an underlying pulmonary vascular disorder such as pulmonary hypertension.
== END ==
PROVIDERS: Family Provider Family Medicine; PCP Family Medicine; Referring Provider Internal Medicine Critical Care Medicine; Visit Provider Internal Medicine Critical Care Medicine
DX: J44.9 Chronic obstructive pulmonary disease, unspecified (principal); Z72.0 Tobacco use
CPT/HCPCS: 94060; 94726; 94729

== ENCOUNTER → 2019-04-03 | Outpatient (CLI) | payer MEDICAID, SELFPAY ==
[2019-04-03 09:28] VITALS: BMI 20.7
--- NOTE | 2019-04-03 10:23 | RAD_ITS ---
STUDY: X-RAY - LUMBAR SPINE REASON FOR EXAM: Male, 44 years old. Disc degeneration, pain TECHNIQUE: 5 view(s) of the lumbar spine were obtained. COMPARISON: Prior study of November 26, 2014 FINDINGS: Normal lumbar lordosis. There is no substantial scoliosis. There is a normal alignment of the vertebrae. There is endplate spondylosis of L4 and L5. There is narrowing of the L4-5 and L5-S1 disc spaces. There are bilateral degenerative hypertrophic facet changes at the L4-5 and L5-S1 levels. The soft tissue structures are unremarkable. RAD/L/S Spine Min 4 Views IMPRESSION: Endplate spondylosis of L4 and L5. Narrowing of the L4-5 and L5-S1 disc spaces. Bilateral degenerative hypertrophic facet changes at the L4-5 and L5-S1 levels. Findings are similar to the previous study. Electronically Signed: Phillip Delarosa MD at 17:39 EDT , Service support ,
== END | disposition home or self-care (01) ==
LOC: RAD 10:18
PROVIDERS: Family Provider Family Medicine; PCP Family Medicine; Referring Provider Anesthesiology Pain Medicine; Visit Provider Anesthesiology Pain Medicine
DX: M51.37 Other intervertebral disc degeneration, lumbosacral region (principal)
CPT/HCPCS: 72110

== ENCOUNTER 2019-04-11 13:45 | Outpatient (RCR) | payer MEDICAID, SELFPAY ==
[2019-04-03 09:28] VITALS: BMI 20.7
--- NOTE | 2019-04-11 15:00 | HP.PTEVAL ---
Patient's Visit Information ANNIE AUGUSTE is a 44 year old M referred to Physical Therapy by KALA Arias with a diagnosis of DEGENERATION OF LUMBOSACRAL INTERVERTEBRAL DISC ,LUMBAR SPONDYLOSIS. Date of Evaluation: 04/11/19 Physical Therapist: Jorden Edwards, PT, Cert MDT, OCS - Visit Plan Frequency: 2x /Week Duration: 4 Weeks Plan: PT INTERVETIONS TO INCLUDED DLS,POSTURAL EX'S ,LUMBAR ROM ,BLE FLEXABLITY ,MODALTIES NEEDED - Subjective Findings: This 44 y/o male presents to physical therapy with lumbar pain. Patient has had lumbar pain for many years. Symptoms with pain became worse over the years due to occupation demands with heavy lifting. Patient has had PT in past . Patient also has had pain managemnt in past with epidural injections. But currently needs to try PT before any injections. Patient symptoms symmtrical lumbar ache. Aggravating factors with bending ,lifting,twisting, walking ,standing affects ADL'S. Alleviating factors rest/sitting. Patient c/o parathesia in legs. Coughing/sneezing -. Bowel/bladder -. Patient symptoms affect QOL and being able to work. Patient has h/o cervical fusion. Pain affects sleeping. SOCAIL: . VOCATION: unemployed - Pain Bilateral Back Pain Intensity (Out of 10): 4 Pain Intensity Range: 10 - Objective POSTURE: mild foward posture ,rounded shoulders. GAIT: reciprocal pattern. PALAPTION: tender erctor spinals,lumbar region. NEURO: denies parathesia/tingling ,reflexes L3-4,L4-5,L5-S1 2/3. MMT: quads/hams 4/5,hip flexion abd 4-/5,ankle 4/5. FLEXABLITY: mod/severe tight hams. LUMBAR ROM: flexion min loss,extension mod loss,side glides mod loss pain decrease segmental motion. SYMMTRIES: align - Special Tests L/S Slump test left side: Negative L/S Slump test right side: Negative L/S Left Straight Leg Raise: Negative L/S Right Straight Leg Raise: Negative Lumbar Standing: Flexion - Mechanical Response: No effect Lumbar Standing: Flexion - Symptoms During Testing: Increases Lumbar Standing: Flexion - Symptoms After Testing: No worse Lumbar Standing: Extension - Mechanical Response: No effect Lumbar Standing: Extension - Symptoms During Testing: Increases Lumbar Standing: Extension - Symptoms After Testing: No worse Lumbar Lying: Flexion - Mechanical Response: No effect Lumbar Lying: Flexion - Symptoms During Testing: Decreases Lumbar Lying: Flexion - Symptoms After Testing: Better Lumbar Lying: Extension - Mechanical Response: No effect Lumbar Lying: Extension - Symptoms During Testing: Increases Lumbar Lying: Extension - Symptoms After Testing: No worse - Goals Goal 1:: Independant with HEP Goal Time Frame: 4-6 Weeks Goal 2:: Improve posture/body mechanics for ADL'S Goal Time Frame: 4-6 Weeks Goal 3:: Patient to decrease back pain by 50% or greater to improve function. Goal Time Frame: 4-6 Weeks Goal 4:: Patient to improve lumbar ROM for function of recovery Goal Time Frame: 4-6 Weeks Goal 5:: Patient to improve back owsestry score by 5 points to improve QOL. Goal Time Frame: 4-6 Weeks - Rehabilitation Potential Physical Therapy Diagnosis: This patient has lumbar pain symmtrical with decrease ROM ,poor segemental motion,with pain impairs function and housework tasks. Rehabilitation Potential: Good - Anticipated Interventions Patient/Client Instruction: Educate patient on: Condition, Plan of Care For the Purpose of:: To decrease pain, To increase ROM, To improve muscle performance and motor function, To increase tolerance to activity/condition/position, To improve ability of physical actions for home/community/work/leisure, To improve health of tissue, To decrease soft tissue restriction, To increase flexibility/ROM, To improve ability to perform tasks related to life management Therapeutic Exercise to Include: Strength training, Body mechanics, Postural training, Flexibilty training, Dynamic Lumbar Stabilization For the Purpose of:: To decrease pain, To increase ROM, To improve muscle performance and motor function, To increase tolerance to activity/condition/position, To improve ability of physical actions for home/community/work/leisure, To improve health of tissue, To decrease soft tissue restriction, To increase flexibility/ROM, To reduce risk of recurrence, To improve tolerance to ADL's TENS: Yes IF ES: Yes Cryotherapy (ice pack, ice massage): Yes Thermo therapy (hot pack): Yes Ultrasound (thermal/non thermal): Yes For the Purpose of:: To decrease pain, To increase ROM, To improve nutrient delivery to tissue, To increase oxygenation perfusion, To improve health of tissue, To decrease soft tissue restriction Thank you for the opportunity to evaluate your patient. For Medicare and Medicare HMO plans, please review the plan of care and approve it. It will need to be FAXED BACK to us at [phone] for Medicare purposes. For Medicare only, by signing this I certify the plan of care. Please let me know if there are questions or concerns regarding this plan of care. Physician Signature: Date:
--- NOTE | 2019-07-31 11:46 | HP.PTDCNRP_ITS ---
HP - Discharge Summary (1) - Patient Information ANNIE AUGUSTE was seen in my office for initial evaluation on 04/11/19. The following Plan of Care was established for this patient: Initial Frequency: 2x /Week Initial Duration: 4 Weeks - Anticipated Interventions Patient/Client Instruction: Educate patient on: Condition, Plan of Care For the Purpose of:: To decrease pain, To increase ROM, To improve muscle perfor atilio and motor function, To increase tolerance to activity/condition/position, To improve ability of physical actions for home/community/work/leisure, To improve health of tissue, To decrease soft tissue restriction, To increase flexibility/ROM, To improve ability to perform tasks related to life management Therapeutic Exercise to Include: Strength training, Body mechanics, Postural training, Flexibilty training, Dynamic Lumbar Stabilization For the Purpose of:: To decrease pain, To increase ROM, To improve muscle performance and motor function, To increase tolerance to activity/condition/position, To improve ability of physical actions for home/community/work/leisure, To improve health of tissue, To decrease soft tissue restriction, To increase flexibility/ROM, To reduce risk of recurrence, To improve tolerance to ADL's TENS: Yes IF ES: Yes Cryotherapy (ice pack, ice massage): Yes Thermo therapy (hot pack): Yes Ultrasound (thermal/non thermal): Yes For the Purpose of:: To decrease pain, To increase ROM, To improve nutrient delivery to tissue, To increase oxygenation perfusion, To improve health of tissue, To decrease soft tissue restriction This patient was last seen in our office . Pertinent comments regarding their Physical therapy will appear below: Patient seen for Intail PT Charan for HEP for back pain. At this point I will be discontinuing this patient from physical therapy. I would be happy to see this patient again in the future if found appropriate by the physician. Thank you! Jorden Edwards, PT, Cert MDT, OCS
== END 2019-04-11 19:00 | disposition home or self-care (01) ==
LOC: PT 13:45
PROVIDERS: Family Provider Family Medicine; PCP Family Medicine; Referring Provider Nurse Practitioner Family; Visit Provider Nurse Practitioner Family
DX: M51.37 Other intervertebral disc degeneration, lumbosacral region (principal); M47.817 Spondylosis without myelopathy or radiculopathy, lumbosacral region
CPT/HCPCS: 97110; 97162

== ENCOUNTER → 2019-08-01 10:15 | Outpatient (CLI) | payer MEDICAID, SELFPAY ==
[2019-07-12 10:28] VITALS: BMI 20.7
--- NOTE | 2019-08-01 10:25 | RAD_ITS ---
STUDY: X-RAY CHEST REASON FOR EXAM: Male, 44 years old. Chest pain, weight loss TECHNIQUE: PA and lateral views of the chest. COMPARISON: None. FINDINGS: The lungs are clear and expanded. There is no demonstrated pleural abnormality. Normal size heart. Normal mediastinum and jerad. Normal visualized pulmonary arteries. Normal visualized aortic arch and descending thoracic aorta. Normal visualized thoracic spine. Healing left rib fractures. There is no demonstrated abnormality of the visualized soft tissue structures of the upper abdomen. RAD/Chest PA and Lateral IMPRESSION: No acute pulmonary process, healing left rib fractures Electronically Signed: Lang Martínez MD at 10:57 EDT , Service support ,
== END ==
PROVIDERS: Family Provider Family Medicine; PCP Family Medicine; Referring Provider Nurse Practitioner Acute Care; Visit Provider Nurse Practitioner Acute Care
DX: J44.9 Chronic obstructive pulmonary disease, unspecified (principal)
CPT/HCPCS: 71046

== ENCOUNTER → 2019-08-25 10:52 | Outpatient (CLI) | payer MEDICAID, SELFPAY ==
[2019-07-12 10:28] VITALS: BMI 20.7
--- NOTE | 2019-08-25 11:00 | CT_ITS ---
STUDY: CT CHEST WITHOUT CONTRAST REASON FOR EXAM: Male, 44 years old. Intentional weight loss RADIATION DOSAGE (If Supplied By Facility): CTDIvol = ( 7.92 ) mGy, DLP = ( 308.68 ) mGycm TECHNIQUE: Transaxial imaging was performed without the administration of intravenous contrast material. Multiplanar coronal and sagittal images were reformatted. Individualized dose optimization techniques were used for this CT. COMPARISON: None. FINDINGS: There are a few scattered emphysematous blebs predominantly in the upper mid lung zones. No noncalcified nodule or mass. No endobronchial lesions. There is no demonstrated pleural abnormality. Normal heart and pericardium. Normal mediastinum. Normal hilar regions. Normal unenhanced pulmonary arteries. There is atherosclerotic calcification of the aortic arch with tortuosity and elongation of the aortic arch and descending thoracic aorta. Fusion hardware in the cervical spine partially visualized. There are degenerative changes of the thoracic spine. Old healed and nonhealed left rib fractures are noted. There is no demonstrated abnormality of the visualized upper abdomen. CT/Chest without Contrast IMPRESSION: 1. No pulmonary nodules/mass or intrathoracic adenopathy. 2. Old left rib fractures. 3. Mild emphysematous changes. Electronically Signed: Xander Zamora MD ([place]) at 15:59 EST , Service support ,
== END ==
PROVIDERS: Family Provider Family Medicine; PCP Family Medicine; Referring Provider Nurse Practitioner Acute Care; Visit Provider Nurse Practitioner Acute Care
DX: R63.4 Abnormal weight loss (principal); F17.200 Nicotine dependence, unspecified, uncomplicated
CPT/HCPCS: 71250

== ENCOUNTER 2019-09-26 12:50 | Emergency (ER) | payer MEDICAID, SELFPAY ==
[2019-07-12 10:28] VITALS: BMI 20.7
[2019-09-26 12:51] VITALS: BP 116/82; PULSE 93; RESP 17; TEMP 36.6; O2SAT 99; BMI 20.4
--- NOTE | 2019-09-26 13:15 | ED.VISSUMM ---
- ER Visit Summary Date of Service: 09/26/19 Chief Complaint: Depressed and suicidal History of Present Illness: The patient is a 44 M 3 of depression, bipolar disorder, schizoaffective disorder, hep C and COPD. Patient states since his son is been more more depressed. He has a plan to overdose but has not actually done anything at this time. In the past he has had attempted overdoses. Physical Examination: Middle-aged male no acute distress vital signs are stable and afebrile. HEENT exam unremarkable. No smell of alcohol. Neck nontender no trauma. Lungs clear to auscultation bilaterally. Heart regular rhythm no murmur. Abdomen soft nontender normal bowel sounds no peritoneal signs. Patient is moving all 4 extremities. No signs of trauma. No wounds. No track duvall. Back nontender. Skin unremarkable other than multiple tattoos. Neurologically is awake and alert with no focal motor deficits. Currently the patient is resting in bed calmly and quietly. He is following commands. Test Results: White count 12. Hemoglobin 12. Electrolytes unremarkable normal creatinine gap. Urine tox screen positive for amphetamines and cannabis. Alcohol level negative. Emergency Department Course and Treatment: Mental Health work-up. Patient has been medically cleared. Crisis is evaluating the patient for placement. Treatment Plan: Transfer to a psychiatric facility Disposition: Transfer Impression: Acute suicidal ideation Acute exacerbation of bipolar disorder History of hep C and COPD This note was generated with [employer] dictation software. It may contain incorrect words, spelling, and punctuation that were not noted in review of the chart prior to signing ED Disposition - Plan for ED Patient: Referrals: Briseida Bartlett DO [Primary Care Provider] -
--- NOTE | 2019-09-26 13:18 | NURSING ---
CRISIS WORKING WITH PATIENT
[2019-09-26] MEDS: Acetaminophen 325 MG Tablet 650 MG PO (13:47)
[2019-09-26 13:55] LABS: Absolute Lymphocyte Count 3.61 X10^3/uL (0.83-4.51); Absolute Neutrophil Count 7.3 X10^3/uL (2.0-7.7); Basophil# 0.08 X10^3/uL; Basophil% 0.6 % (0-1); Eosinophil# 0.85 X10^3/uL; Eosinophils% 6.7 % (0-5); Hematocrit 39.5 % (40-54); Hemoglobin 12.5 g/dL (13.0-16.5); Lymphocyte # 3.61 X10^3/ul (4.0); Lymphocyte % 28.4 % (19-41); Mean Corp Hgb Conc 31.6 g/dL (32-36); Mean Corpuscular Hgb 25.7 pg (27.0-32.0); Mean Corpuscular Volume 81.1 fL (80-94); Mean Platelet Vol. 9.1 fl (6.2-12.0); Monocyte# 0.79 X10^3/uL; Monocyte% 6.2 % (0-10); NRBC Flagged by Analyzer 0 % (0-5); Neutrophil # 7.32 X10^3/uL (2.7-7.7); Neutrophil % 57.7 % (47-70); Platelet Count 387 K/mm3 (150-450); RBC Distribution Width CV 13.8 % (11.6-14.6); RBC Distribution Width SD 40.6 fl (35.1-43.9); Red Blood Count 4.87 M/mm3 (4.6-6.2); White Blood Count 12.7 K/mm3 (4.4-11.0)
[2019-09-26 14:05] VITALS: RESP 17
[2019-09-26 14:05] LABS: Amphetamine Urine VISTA POSITIVE (<1000 ng/mL); Barbiturate Urine VISTA NEGATIVE (< 200 ng/mL); Benzodiazepine Urine VISTA NEGATIVE (< 200 ng/mL); Cocaine Urine VISTA NEGATIVE (< 300 ng/mL); Ecstacy Urine VISTA NEGATIVE (< 500 ng/mL); Methadone Urine VISTA NEGATIVE (< 300 ng/mL); PCP Urine VISTA NEGATIVE (< 25 ng/mL); THC Urine VISTA POSITIVE (< 50 ng/mL); Vista UDS pH Range 6
[2019-09-26 14:05] LABS: Anion Gap 5 (5-15); BUN 15 mg/dL (7-18); BUN/Creat Ratio 12.1 RATIO (10-20); Calcium,Total 9.1 mg/dL (8.5-10.1); Chloride 109 mmol/L (98-107); Creatinine, Serum 1.24 mg/dL (0.70-1.30); EST Glomerular Filtration Rate 67 mL/min (>60); Est Glom Filt Rate - Afr Amer 82 mL/min (>60); Estimated Creatinine Clearance 76.16 ml/min; Glucose 84 mg/dL (74-106); Potassium 3.8 mmol/L (3.5-5.1); Sodium Level 142 mmol/L (136-145)
[2019-09-26 14:28] LABS: Alcohol, Blood (Medical)-Serum < 3.0 mg/dL
[2019-09-26 15:17] VITALS: BP 116/87; PULSE 93; RESP 14; TEMP 37.1; O2SAT 99
== END 2019-09-26 15:39 ==
LOC: ED 13:11
PROVIDERS: Emergency Provider Emergency Medicine; Family Provider Family Medicine; PCP Family Medicine
DX: F31.9 Bipolar disorder, unspecified (principal); R45.851 Suicidal ideations; F25.9 Schizoaffective disorder, unspecified; J44.9 Chronic obstructive pulmonary disease, unspecified; Z72.0 Tobacco use; Z79.899 Other long term (current) drug therapy; Z86.19 Personal history of other infectious and parasitic diseases; Z87.442 Personal history of urinary calculi
CPT/HCPCS: 36415; 80048; 80307; 80320; 85025; 99285; G0480

== ENCOUNTER → 2019-11-08 13:54 | Outpatient (CLI) | payer MEDICAID, SELFPAY ==
--- NOTE | 2019-11-08 14:00 | RAD_ITS ---
HISTORY: Right fifth digit pain. Protrudent screw. Screw pudding roughly 20 years ago. Exam is 3 images of the right fifth digit. Findings: No comparison imaging. A screw is present within the mid diaphysis of the fifth proximal phalanx. There is well corticated margins to a tract within the bone indicative of loosening of the screw and wobbling of the screw displacing bone around its margins. The screw extends out of the bone on a mediolateral dorsal aspect was 6 mm. Some interphalangeal arthritis is present. The fracture is healed. RAD/Finger(s) Min 2 Views IMPRESSION: Screw loosening out of the fifth proximal phalanx by 6 mm at 2237 Reported and signed by: Tobias Villa MD Electronically Signed: Tobias Villa MD at 22:36 EST Tel , Service support ,
== END ==
PROVIDERS: PCP Family Medicine; Referring Provider Family Medicine; Visit Provider Family Medicine
DX: M79.89 Other specified soft tissue disorders (principal)
CPT/HCPCS: 73140

== ENCOUNTER 2019-11-28 08:28 | Day surgery (SDC) | payer MEDICAID, SELFPAY ==
--- NOTE | 2019-11-22 01:01 | HP_ITS ---
Intake Intake Visit Reasons: Right hand Chief Complaint: right 5th finger Accompanied by: self Is patient in pain?: Yes Pain scale (1-10): 10 Allergies acamprosate [From Campral] Allergy (Severe, Verified 09/26/19 12:51) Other Hallucinations bupropion [From Wellbutrin] Allergy (Severe, Verified 09/26/19 12:51) Other Seizure and hallucination amantadine [From Symmetrel] Allergy (Verified 09/26/19 12:51) Other ranitidine [From Zantac] Allergy (Verified 09/26/19 12:51) Other NSAIDS (Non-Steroidal Anti-Inflamma Adverse Reaction (Verified 09/26/19 15:11) Other Medications Lamotrigine 200 mg PO QHS 04/05/18 [History Confirmed 11/22/19] Loratadine 10 mg PO DAILY 04/05/18 [History Confirmed 11/22/19] Omeprazole 20 mg PO DAILY 04/05/18 [History Confirmed 11/22/19] aripiprazole 10 mg tablet 10 mg PO QDAY 05/04/18 [History Confirmed 11/22/19] hydroxyzine pamoate 50 mg capsule See Rx Instructions PO .COMPLEX 10/05/18 [History Confirmed 11/22/19] Baclofen 10 mg PO TID 09/26/19 [History Confirmed 11/22/19] Gabapentin [Neurontin] 200 mg PO TID 09/26/19 [History Confirmed 11/22/19] Gemfibrozil [Lopid] 600 mg PO BID 09/26/19 [History Confirmed 11/22/19] traZODone [Desyrel] 100 mg PO QHS 09/26/19 [History Confirmed 11/22/19] fluoxetine 20 mg capsule 20 mg PO DAILY 11/22/19 [History Confirmed 11/22/19] PFSH Social History (Updated 11/23/19 @ 09:[address] Padmini Vigil DO) Smoking Status: Current every day smoker second hand exposure: No alcohol intake: former substance use type: marijuana caffeine: Yes what type of physical activity do you participate in: none HPI Right hand: Surgical H&P: Yes Details: Parts of this documentation were recorded by a scribe, this documentation accurately reflects the service provided and the decisions made by me, Dr. Padmini Vigil DO 11/22/19 1228. ANNIE AUGUSTE is a 44 year old M NEW patient here today for right 5th finger. Referred by Dr. Bartlett. Patient states that he punched something about 20 years ago and he had a screw placed he think at [facility]. Denies numbness, tingling or other associated symptoms. He started having pain of his right finger about 2 years ago and the pain keeps worsening. He had x-rays on 11/08/2019 and these showed that his screw is loosening. He has most his pain when he is writing. He has a lump over where the screw is backing out. No open areas noted. ROS Musc Denies joint swelling, Denies limited joint movement, Denies numbness, Denies radiating pain into limb, Reports stiffness, Denies tingling Skin/Breast Denies lesions, Reports skin pain, Reports skin swelling, Denies wounds Neuro No numbness, No tingling No rales rhonchi wheezing, no abdominal pain no, no audible bruits Assessment & Plan Plan Personally reviewed the patient's medical history, medications, surgeries and recent exams if available. X-rays were reviewed. There is no obvious fracture, dislocation, or lucency noted. Edcuated on the anatomy of the finger and explained that his screw needs removed. Reviewed the pre-operative plans with the patient. Risks and benefits of the procedure were fully explained, including but not limited to infection, neurovascular injury, continued pain, arthritis, stiffness, need for further surgery, re-injury, DVT, PE, general risks of anesthesia, and loss of limb or life. The patient understands all the risks and does wish to proceed with written consent. Follow up postop or sooner if pain, swelling, numbness or associated symptoms, or concerns develop. All questions answered. Patient in agreement of plan. Coding Level of Care Code 65544 11/23/19 1000 <Electronically signed by Padmini jang DO> Date _ Padmini Vigil DO
[2019-11-22 12:29] VITALS: BMI 20.4
[2019-11-28 08:46] VITALS: BP 104/75; PULSE 68; RESP 16; TEMP 37; O2SAT 96; BMI 21.9
--- NOTE | 2019-11-28 09:30 | BON_PTH ---
PATIENT: ANNIE AUGUSTE LOC: [facility] U#:[id number] AGE/SX: 44/M ROOM: RE11/28/[address]: Dr. Padmini Vigil DO : 1975 BED: DIS: 11/28/2019 SPEC #: [id number] RECD: 11/28/19 15:55 STATUS: CARLOS ENRIQUE STEPHAN #: [id number] CASSIE: 11/28/19 09:[address]: Padmini Vigil DEPT: SURGICAL PATHOLOGY RECD BY: Joselin Phelps ENTERED: 11/28/19 15:56 SP TYPE: Bone OTHR DR: Dr. Briseida Bartlett DO Tissues: Finger, NOS Procedures: Decalcification bone/plaque Surgery Specimen Level IV HEADER OPERATION: Hardware removal screw fifth metacarpal PRE-OP DIAGNOSIS: Right fifth metacarpal screw loose TISSUE SUBMITTED: Right fifth finger bone MICROSCOPIC DIAGNOSIS Right fifth finger bone, biopsy: Fragments of osseous and fibrocartilaginous tissue with degenerative change. AM:margareth 12/03/19 MICROSCOPIC DESCRIPTION Slides are reviewed. GROSS DESCRIPTION Received in fixative is one container labeled with the patient's name and designated right fifth finger bone. The specimen consists of multiple irregular fragments of gritty main tissue that in aggregate measure 0.6 x 0.5 x 0.1 cm. The specimen is totally submitted in one cassette after decalcification. / AM:margareth 11/28/19 TC:5 CPT: 07856, 37508
--- NOTE | 2019-11-28 09:30 | RAD_ITS ---
STUDY: X-RAY - RIGHT HAND REASON FOR EXAM: Fifth metacarpal screw removal. TECHNIQUE: 6 intraoperative images of the hand. COMPARISON: Radiographs from 11/08/2019. FINDINGS: There is removal of the screw from the fifth proximal phalanx without evidence of complication. 7 seconds of fluoroscopy time was used. Electronically Signed: Davin Felix MD at 15:17 EST Tel , Service support , RAD/Hand Min 3 Views
[2019-11-28] MEDS: Cefadroxil 500 MG CAPSULE 1000 MG PO (09:39)
[2019-11-28] MEDS: Mupirocin Ointment 22gm Tube 1 APPLIC (10:29)
--- NOTE | 2019-11-28 10:52 | PCM.DC.ORTHO ---
Discharge Diet: No Restrictions - leave dressing intact until postop visit in 10-14 days Discharge Activity: May Not Drive May shower in (days): 1 Ice area for (Minutes): 20 - Every hour while awake. Weight Bearing Status: Weight bearing as tolerated Keep extremity elevated above heart level: Operative Extremity Call your doctor if your incision/area has: Continuous Slow Oozing, Sudden Increased Bleeding, Increased Pain/ Swelling, Increased Redness, Foul Smelling Discharge Call your doctor if you observe: Fever of 101 or Higher, Coldness, Increased Pain, Numbness or Tingling, Change in Color, Calf discomfort Allergies/Adverse Reactions: Allergies acamprosate [From Campral] Allergy (Severe, Verified 11/28/19 08:44) Other Hallucinations bupropion [From Wellbutrin] Allergy (Severe, Verified 11/28/19 08:44) Other Seizure and hallucination amantadine [From Symmetrel] Allergy (Verified 11/28/19 08:44) Other GOES CRAZY ranitidine [From Zantac] Allergy (Verified 11/28/19 08:44) Other NSAIDS (Non-Steroidal Anti-Inflamma Adverse Reaction (Verified 11/28/19 08:44) Other not to have due to inflammation in the bowel Medications to take at Discharge Lamotrigine 200 mg PO QHS 04/05/18 Loratadine 10 mg PO DAILY 04/05/18 Omeprazole 20 mg PO DAILY 04/05/18 aripiprazole 10 mg tablet 10 mg PO QDAY 05/04/18 hydroxyzine pamoate 50 mg capsule 50 mg PO DAILY 10/05/18 Baclofen 20 mg PO TID 09/26/19 Gabapentin [Neurontin] 200 mg PO TID 09/26/19 Gemfibrozil [Lopid] 600 mg PO BID 09/26/19 traZODone [Desyrel] 100 mg PO QHS 09/26/19 fluoxetine 20 mg capsule 20 mg PO DAILY 11/22/19 Oxycodone HCl/Acetaminophen [Percocet 5/325] 1 - 2 tablet PO Q6H PRN PRN 5 Days #20 tablet 11/28/19 The following prescriptions were given: Oxycodone HCl/Acetaminophen [Percocet 5/325] 1 - 2 tablet PO Q6H PRN PRN 5 Days #20 tablet PRN Reason: Pain Transmission Status: Sent to [facility] Primary Care Physician: Briseida Bartlett DO [Primary Care Provider] - Test Results: Test results from this visit will be discussed in further detail at your follow-up appointment, if applicable. Please Follow Up With: Padmini Vigil DO - [phone]
--- NOTE | 2019-11-28 10:52 | PCM.OPRPT ---
Report of Operation Date of Procedure: 11/28/19 Pre-Operative Diagnosis: right fifth proximal phalanx loose screw/skin irritation from prominent screw head Post-Operative Diagnosis: same Surgery/Procedure Performed:: right fifth proximal phalanx screw removal, soft tissue/bone debridement, skin removal/scar revision; tissue -granulation- sent for cx, bone sent for cx, application of splint Type of Anesthesia:: Local Specimen's removed: soft tissue/granulation tissue, bone, screw Description of Procedure: Preop note Patient is a 44-year-old male with known history of an ORIF of his right proximal phalanx 20 years ago. Has been worsening palpation of the screw backing up and irritation of the skin and subcutaneous tissue. X-rays confirmed a screw that is backing out of the proximal phalanx no signs of infection in the office however will take cultures and send bone for further evaluation to ensure there is no further tissue or wound infection or bony infection osteomyelitis. Risk benefits and alternatives are discussed the patient. Risk include but not limited to blood loss, blood clot, infection, neurovascular, failure procedure, loss of life and loss of limb. Patient is aware like proceed with right proximal phalanx removal repair as indicated. operative note Patient seen and examined preop holding area. Right hand was marked. Patient brought to the operating placed supine on the operating table. Please note that preoperatively patient did receive a local block by anesthesia and did receive his p.o. antibiotics. Patient is right arm was prepped and draped in usual sterile fashion. We able to palpate and visualize with fluoroscopy the proximal phalanx screw. Timeout was performed. We then created a centimeter lateral incision over the lateral aspect of the proximal phalanx dissect down tenotomies and were able to bring the screw out the screw was not in the bone was able to be removed quite easily we did send it and as well as some granulation tissue to micro for further evaluation. We then debrided the bone as it had not filled in with no bone so there is concern that maybe there is some infection there was no pus no brijesh purulence noted however we did send the the bone for to rule out osteomyelitis. We then irrigated the incision with copious amounts of sterile saline debrided the bone to see if we can get some further healing and filling the hole and ellipticized the skin in order to make for to better appearance of the scar as well as sending the skin for further evaluation. Sterile dressings were applied after the incision was closed with interrupted 4-0 nylon stitches. Patient taught procedure well no complication child recovery room in stable condition. Postoperative note May use hand as tolerated as long as no weightbearing to right arm Awaiting final culture and sensitivities Call with increased pain numbness tingling or issues arise Percocet at Hospital pharmacy This note was generated with [employer] dictation software. It may contain incorrect words, spelling, and punctuation that were not noted in checking the note before signing.
== END 2019-11-28 11:07 | disposition home or self-care (01) ==
LOC: SDC 08:29 → AC 08:30
PROVIDERS: PCP Family Medicine; Referring Provider Orthopaedic Surgery; Visit Provider Orthopaedic Surgery
PROC: (CPT 11044; principal; 2019-11-28 09:15)
DX: T84.220A Displacement of internal fixation device of bones of hand and fingers, initial encounter (principal); J44.9 Chronic obstructive pulmonary disease, unspecified; K21.9 Gastro-esophageal reflux disease without esophagitis; F17.200 Nicotine dependence, unspecified, uncomplicated; Z88.6 Allergy status to analgesic agent; Z79.899 Other long term (current) drug therapy; Z86.19 Personal history of other infectious and parasitic diseases
CPT/HCPCS: 11044; 20680; 64450; 73130; 76000; 87070; 87075; 87205; 88305; 88311

== ENCOUNTER → 2020-02-14 09:55 | Outpatient (CLI) | payer MEDICAID, SELFPAY ==
[2020-01-28 10:45] VITALS: BMI 20.7
--- NOTE | 2020-02-14 13:23 | PFTCOMP ---
COMPLETE PULMONARY FUNCTION TEST INTERPRETATION Brief HPI: Patient is a 45 year old male, currently under the care of myself, who presents to [facility] for complete pulmonary function tests secondary to diagnosis of COPD. Respiratory therapist reports good effort and reproducible results. Interpretation: Forced expiration spirometry shows no large airways obstructive ventilatory defect with an FEV1 of 81% predicted. There is no significant bronchodilator response by strict ATS criteria. Spirograms are of good quality and plateau slowly, indicating slowly emptying areas of the lungs. The respiratory flow volume loop shows decreased expiratory flow rates at all lung volumes consistent with airway obstruction. Lung volumes by body plethysmography show a normal total lung capacity at 7.51 L, 96% predicted. All other lung volumes are within normal limits. Diffusion capacity by carbon monoxide is normal at 76% predicted. The airway resistance is normal. Compared to previous pulmonary function tests from 03/20/2019, there is been a significant improvement in lung volumes and DLCO by 12% and 22% respectively. Impression: These pulmonary function tests are grossly within normal limits and show significant improvement compared to 2019.
== END ==
PROVIDERS: PCP Family Medicine; Referring Provider Internal Medicine Critical Care Medicine; Visit Provider Internal Medicine Critical Care Medicine
DX: J96.11 Chronic respiratory failure with hypoxia (principal)
CPT/HCPCS: 94060; 94726; 94729

== ENCOUNTER → 2020-02-15 10:54 | Outpatient (CLI) | payer MEDICAID, SELFPAY ==
[2020-01-28 10:45] VITALS: BMI 20.7
[2020-02-15 11:32] VITALS: PULSE 101; PULSE 103; PULSE 109; PULSE 110; PULSE 113; PULSE 114; O2SAT 97; O2SAT 98
--- NOTE | 2020-02-15 16:10 | PCM.PSN.6M ---
PSN 6 Minute Walk Test - 6 Minute Walk Test 6 Minute Walk Test: 6 Minute Walk Test PSN:6-Minute Walk Test Start: 02/15/20 11:32 Freq: Status: Active Protocol: RESP.6MINW Document 02/15/20 11:32 [facility] (Rec: 02/15/20 11:36 [facility] [id number]) 6 Minute Walk Test Date Performed 02/15/20 Time Performed 11:00 Height 6 ft 1 in Weight: 74.843 kg Weight in Pounds 165.[address]: Edward Ahuja Assistive device used: None Pre-test Oxygen Delivery Method Room Air Pulse Ox (%) 98 Pulse Rate (60-100 beats/min) 101 H Dyspnea Emanuel Scale (0-10) 0 1st minute Oxygen Delivery Method Room Air Pulse Ox (%) 98 Pulse Rate (60-100 beats/min) 101 H Dyspnea Emanuel Scale (0-10) 0 Number of Rests Taken 0 2nd minute Oxygen Delivery Method Room Air Pulse Ox (%) 98 Pulse Rate (60-100 beats/min) 109 H Dyspnea Emanuel Scale (0-10) 1 Number of Rests Taken 0 3rd minute Oxygen Delivery Method Room Air Pulse Ox (%) 98 Pulse Rate (60-100 beats/min) 114 H Dyspnea Emanuel Scale (0-10) 1 Number of Rests Taken 0 4th minute Oxygen Delivery Method Room Air Pulse Ox (%) 97 Pulse Rate (60-100 beats/min) 113 H Dyspnea Emanuel Scale (0-10) 1 Number of Rests Taken 0 5th minute Oxygen Delivery Method Room Air Pulse Ox (%) 98 Pulse Rate (60-100 beats/min) 114 H Dyspnea Emanuel Scale (0-10) 1 Number of Rests Taken 0 6th minute Oxygen Delivery Method Room Air Pulse Ox (%) 98 Pulse Rate (60-100 beats/min) 110 H Dyspnea Emanuel Scale (0-10) 2 Number of Rests Taken 0 Reported Symptoms Increased Work of Breathing Post-test Oxygen Delivery Method Room Air Pulse Ox (%) 98 Pulse Rate (60-100 beats/min) 103 H Dyspnea Emanuel Scale (0-10) 0 Full Laps Walked 20 Partial Lap, Number of Tiles Walked 10 Total Distance Walked (ft) 1190 - Interpretation Interpretation: The patient was able to ambulate 1190 feet over the course of 6 minutes on room air with no assistive devices or breaks. The patient's saturation never dropped, but heart rate did increase to 114 bpm. These findings are consistent with a cardiovascular limitation to exercise tolerance. - Recommendations Recommendations: No supplemental oxygen is indicated at this time.
== END ==
PROVIDERS: PCP Family Medicine; Referring Provider Internal Medicine Critical Care Medicine; Visit Provider Internal Medicine Critical Care Medicine
DX: J96.11 Chronic respiratory failure with hypoxia (principal); J30.9 Allergic rhinitis, unspecified
CPT/HCPCS: 94618

== ENCOUNTER → 2023-06-13 | Outpatient (CLI) | payer MEDICAID, SELFPAY ==
[2023-06-13 18:01] LABS: Absolute Neutrophil Count 6.1 X10^3/uL (2.0-7.7); Basophil# 0.05 X10^3/uL; Basophil% 0.5 % (0-1); Eosinophil# 0.27 X10^3/uL; Eosinophils% 2.7 % (0-5); Hematocrit 40.2 % (40-54); Hemoglobin 12.7 g/dL (13.0-16.5); Lymphocyte % 27.4 % (19-41); Mean Corp Hgb Conc 31.6 g/dL (32-36); Mean Corpuscular Hgb 31.1 pg (27.0-32.0); Mean Corpuscular Volume 98.3 fL (80-94); Mean Platelet Vol. 9.7 fl (6.2-12.0); Monocyte# 0.69 X10^3/uL; NRBC Flagged by Analyzer 0 % (0-5); Neutrophil # 6.13 X10^3/uL (2.7-7.7); Neutrophil % 62.1 % (47-70); Platelet Count 335 K/mm3 (150-450); RBC Distribution Width CV 11.6 % (11.6-14.6); RBC Distribution Width SD 41.9 fl (35.1-43.9); Red Blood Count 4.09 M/mm3 (4.6-6.2); White Blood Count 9.9 K/mm3 (4.4-11.0)
[2023-06-13 18:14] LABS: Prothrombin Time (Protime)PT. 12.8 SECONDS (11.7-14.9)
[2023-06-13 18:47] LABS: ALB/GLOB Ratio 1.1 RATIO (0.9-2.4); AST(SGOT) 35 U/L (15-37); Alanine Aminotransfer ALT/SGPT 58 U/L (16-61); Albumin, Serum 4.1 g/dL (3.2-5.0); Alkaline Phosphatase 102 U/L (45-117); Anion Gap 5 (5-15); BUN 15 mg/dL (7-18); BUN/Creat Ratio 14.4 RATIO (10-20); Calcium,Total 8.9 mg/dL (8.5-10.1); Chloride 111 mmol/L (98-107); Creatinine, Serum 1.04 mg/dL (0.70-1.30); EST Glomerular Filtration Rate 81 mL/min (>60); Est Glom Filt Rate - Afr Amer 98 mL/min (>60); Globulin 3.7 g/dL (2.2-4.2); Glucose 81 mg/dL (74-106); Protein, Total 7.8 g/dL (6.4-8.2); Sodium Level 140 mmol/L (136-145)
[2023-06-15 04:07] LABS: AFP, Tumor Marker < 1.8 ng/mL (0.0-6.9)
== END | disposition home or self-care (01) ==
LOC: BFHLAB 14:04
PROVIDERS: PCP Family Medicine; Referring Provider Family Medicine; Visit Provider Family Medicine
DX: B19.20 Unspecified viral hepatitis C without hepatic coma (principal); Z51.81 Encounter for therapeutic drug level monitoring
CPT/HCPCS: 36415; 80053; 82105; 85025; 85610

== ENCOUNTER → 2025-01-17 | Outpatient (CLI) | payer MEDICAID, SELFPAY ==
--- NOTE | 2025-01-17 13:46 | RAD_ITS ---
EXAM: XR Lumbosacral Spine Flexion/Extension Only, 2 or 3 Views CLINICAL INDICATION: LOW BACK PAIN/SCIATICA TECHNIQUE: Lateral flexion/extension views of the lumbar spine and sacrum. COMPARISON: No relevant prior studies available. FINDINGS: VERTEBRAE: Moderate endplate degenerative changes and disc disease of L4-S1. No acute fracture. Normal sagittal alignment. No instability. SACRUM/COCCYX: Unremarkable as visualized. No acute fracture. DISC SPACES: No acute findings. No significant narrowing. SOFT TISSUES: Unremarkable. RAD/L/S Spine Min 4 Views IMPRESSION: Degenerative changes as above. Reading Location: [facility]
== END | disposition home or self-care (01) ==
LOC: RAD 13:42
PROVIDERS: PCP Family Medicine; Referring Provider Nurse Practitioner Family; Visit Provider Nurse Practitioner Family
DX: M54.41 Lumbago with sciatica, right side (principal); M54.42 Lumbago with sciatica, left side
CPT/HCPCS: 72110